=== PATIENT | male | born 1960 | race Caucasian/White ===

== ENCOUNTER → 2017-04-10 16:04 | Outpatient (CLI) | payer OTHER, SELFPAY ==
--- NOTE | 2017-04-10 16:31 | RAD_ITS ---
STUDY: X-RAY - LUMBAR SPINE REASON FOR EXAM: Male, 57 years old. Back pain. TECHNIQUE: 5 view(s) of the lumbar spine were obtained. COMPARISON: None FINDINGS: There is straightening of the normal lumbar lordosis. There is a dextroscoliosis of the lumbar spine. There is a normal alignment of the vertebrae. There is multilevel endplate spondylosis of the lumbar vertebrae. There is multi-level degenerative disc disease with multi-level disc space narrowing. There is no demonstrated fracture. The soft tissue structures are unremarkable. RAD/L/S Spine Min 4 Views IMPRESSION: Degenerative changes and dextroconvex scoliosis. Electronically Signed: Moise Darnell MD at 13:09 EST , Service support ,
== END ==
PROVIDERS: Family Provider Family Medicine; PCP Family Medicine; Visit Provider Family Medicine
DX: M51.36 Other intervertebral disc degeneration, lumbar region (principal); M41.86 Other forms of scoliosis, lumbar region; M47.896 Other spondylosis, lumbar region
CPT/HCPCS: 72110

== ENCOUNTER → 2018-01-05 14:32 | Outpatient (CLI) | payer OTHER, SELFPAY ==
[2016-10-22 19:37] VITALS: BMI 29.1
--- NOTE | 2018-01-05 09:37 | RAD_ITS ---
HISTORY: FALL. PAIN COMPARISON: None FINDINGS: XR Knee Complete 4 Views or More: No fracture or acute disease. Mild narrowing of the medial and lateral joint space compartments. Chondrocalcinosis of the tibiofemoral joint, more so at the medial compartment. The patellofemoral joint appears preserved. No bony erosions or joint effusion. Mild spurring of the anterior superior margin of the patella at the quadriceps insertion. RAD/Knee 4 or More Views IMPRESSION: 1. Left knee mild degenerative arthritis with chondrocalcinosis (pseudogout). 2. No fracture or acute disease. 3. Mild patellar spurring. at 0644 Reported and signed by: Sammy Maher MD Electronically Signed: Sammy Maher, at 6:42 EST Tel , Service support ,
== END ==
PROVIDERS: Family Provider Family Medicine; PCP Family Medicine; Referring Provider Family Medicine; Visit Provider Family Medicine
DX: M17.12 Unilateral primary osteoarthritis, left knee (principal); M11.262 Other chondrocalcinosis, left knee
CPT/HCPCS: 73564

== ENCOUNTER 2018-01-24 13:00 | Outpatient (RCR) | payer OTHER, SELFPAY ==
--- NOTE | 2017-12-15 15:20 | HP.PTEVAL ---
Patient's Visit Information CHI HINTON is a 57 year old M referred to Physical Therapy by Salomón Arroyo DO with a diagnosis of CERVICAL RADICULOPATHY,SPONDYLOLYSIS. Date of Evaluation: 12/15/17 Physical Therapist: Francesco Osorio PT, - Visit Plan Frequency: 2x /Week Duration: 4 Weeks Plan: Intially US ,manual therapy cervical traction monitor left arm symptoms ,doesnt respond to cold ,MHP okay ,started on right rotation and lateral flexion only,. progress to postural ex's as able - Subjective Subjective: This 57 y/o male presents to physical therapy with cervical radiculapthy affects left arm. Patient has had cervical pain for several months. Patient located of pain base of cervical spine and left arm to fingers. Currently,symptoms located at shoulder anterior aspect to upper arm . Symptoms worse with looking ups,turning to left ,poor ROM to left,lifting,sitting. Symptoms better with turning to right. Pain affects sleeping. C/O parathesia/tingling left arm. Intermitant DAWSON .C/O dizziness but has vertigo issues.No trauma ot treatment for cevical spine. Patient had MRI several years ago. No pain management. VOCATION: retired. SOCIAL: - Pain Bilateral Neck Pain Intensity (Out of 10): 7 Pain Intensity Range: 10 Left Shoulder Pain Intensity (Out of 10): 3 Pain Intensity Range: 10 - Objective POSTURE: mild foward posture ,head foward. NEURO: c/o parathesia/tingling left arm,C5-6-7 2/3,mytome weakness C5-6,C6-7. AROM: BUE WFL. MMT: left shoulder 3+/5 anterior /lateral deltoid,bicep ,tricep 3+/5 ,wrist 4-/5. CERVICAL ROM: flexion mod loss pain ,lateral flexion/rotation to left mofd/severe loss pain,right mod loss. PALPATION: tender UT/levator - Special Tests C/S Radiculapathy - Left Upper limb tension test: Negative C/S Radiculapathy - Right Upper limb tension test: Negative C/S Radiculapathy - Left Spurlings: Positive C/S Radiculapathy - Right Spurlings: Positive C/S Radiculapathy - Left Cervical distraction: Negative C/S Radiculapathy - Right Cervical distraction: Negative Sharp Latesha: Negative Vertebral Artery Test: Negative Alar Ligament Test: Negative Cervical Sitting: Protrusion - Mechanical Response: No effect Cervical Sitting: Protrusion - Symptoms During Testing: Increases Cervical Sitting: Protrusion - Symptoms After Testing: Worse Cervical Sitting: Retraction - Mechanical Response: No effect Cervical Sitting: Retraction - Symptoms During Testing: Increases Cervical Sitting: Retraction - Symptoms After Testing: Worse Cervical Sitting: Retraction-Extension - Mechanical Response: No effect Cerv Sitting: Retraction-Extension - Symptoms During Testing: Increases Cerv Sitting: Retraction-Extension - Symptoms After Testing: Worse Cervical Sitting: Sidebend Right - Mechanical Response: No effect Cervical Sitting: Sidebend Right - Symptoms During Testing: Decreases Cervical Sitting: Sidebend Right - Symptoms After Testing: Better Cervical Sitting: Sidebend Left - Mechanical Response: No effect Cervical Sitting: Sidebend Left - Symptoms During Testing: Increases Cervical Sitting: Sidebend Left - Symptoms After Testing: Worse Cervical Sitting: Rotation Right - Mechanical Response: No effect Cervical Sitting: Rotation Right - Symptoms During Testing: Decreases Cervical Sitting: Rotation Right - Symptoms After Testing: No better Cervical Sitting: Rotation Left - Mechanical Response: No effect Cervical Sitting: Rotation Left - Symptoms During Testing: Increases Cervical Sitting: Rotation Left - Symptoms After Testing: Worse Cervical Sitting: Flexion - Mechanical Response: No effect Cervical Sitting: Flexion - Symptoms During Testing: Abolishes Cervical Sitting: Flexion - Symptoms After Testing: Worse - Goals Goal 1:: Patient to be Independant with HEP Goal Time Frame: 4-6 Weeks Goal 2:: Patient to improve posture for ADL'S Goal Time Frame: 4-6 Weeks Goal 3:: Patient to decrease pain by 50% or greater to improve function. Goal Time Frame: 4-6 Weeks Goal 4:: Patient improve cervical ROM for function of recovery Goal Time Frame: 4-6 Weeks Goal 5:: Patient increase strength of left UE 4-/5 to improve mytomes. Goal Time Frame: 4-6 Weeks Goal 6:: Patient to improve neck owsestry score by 5 points or greater to improve function. Goal Time Frame: 4-6 Weeks - Rehabilitation Potential Physical Therapy Diagnosis: This patient has cervical radiculopathy due to possible lateral stenosis with pain worse with movement to left side better opposite side ,and extension ,+ mytome weakness ,there may be some disc involvemt as well. Patient did have MRI showed multiple DDD,SPURS couple years ago. Rehabilitation Potential: Good - Anticipated Interventions Patient/Client Instruction: Educate patient on: Condition, Plan of Care For the Purpose of:: To decrease pain, To increase ROM, To improve muscle performance and motor function, To improve ability to perform ADL's, To increase tolerance to activity/condition/position, To improve ability of physical actions for home/community/work/leisure, To improve health of tissue, To decrease soft tissue restriction, To increase flexibility/ROM, To improve ability to perform tasks related to life management Therapeutic Exercise to Include: Strength training, Postural training, Active ROM Comment: cervical ROM For the Purpose of:: To decrease pain, To increase ROM, To improve nutrient delivery to tissue, To increase oxygenation perfusion, To improve health of tissue, To decrease soft tissue restriction, To increase flexibility/ROM, To improve ability to perform tasks related to life management Manual Therapy Techniques to Include: Mobilization, Other Comment: CERVICAL TRACTION For the Purpose of:: To decrease pain, To increase ROM, To improve muscle performance and motor function, To improve health of tissue, To decrease soft tissue restriction, To increase flexibility/ROM TENS: Yes IF ES: Yes Thermo therapy (hot pack): Yes Ultrasound (thermal/non thermal): Yes Intermittent cervical traction: Yes - 15-20# For the Purpose of:: To decrease pain, To increase ROM, To improve nutrient delivery to tissue, To increase oxygenation perfusion, To improve health of tissue, To decrease soft tissue restriction Thank you for the opportunity to evaluate your patient. For Medicare and Medicare HMO plans, please review the plan of care and approve it. It will need to be FAXED BACK to us at [phone] for Medicare purposes. Please let me know if there are questions or concerns regarding this plan of care. Physician Signature: Date:
--- NOTE | 2018-01-24 13:28 | HP.PTDCSUM ---
HP - PT D/C Summary It has been my pleasure to treat CHI HINTON under orders from Salomón Arroyo DO, for the diagnosis of CERVICAL RADICULOPATHY,SPONDYLOLYSIS for a total of 12 visit(s). Discharge Date: 01/24/18 Please see the following information for a summary of their discharge status. - Subjective Subjective: Doing good no pain . progressing well. Return to prior ADL'S no difficulty - Pain Bilateral Neck Pain Intensity (Out of 10): 0 Left Shoulder Pain Intensity (Out of 10): 0 - Overall Improvement % Improvement: 95 - Objective Objective/Function: POSTURE: WFL. NEURO: intact. MMT: grossly 4/5. CERVICAL ROM: flexion min loss ,lateral flexion/rotation mod loss. -ANR - Goals Goal 1:: Patient to be Independant with HEP Goal Progress: Goal Met Goal 2:: Patient to improve posture for ADL'S Goal Progress: Goal Met Goal 3:: Patient to decrease pain by 50% or greater to improve function. Goal Progress: Goal Met Goal 4:: Patient improve cervical ROM for function of recovery Goal Progress: Goal Met Goal 5:: Patient increase strength of left UE 4-/5 to improve mytomes. Goal Progress: Goal Met Goal 6:: Patient to improve neck owsestry score by 5 points or greater to improve function. Goal Progress: Goal Met - Plan Plan: D/C - D/C Information If there are questions or concerns regarding this patient's physical therapy, please feel free to call me at [phone]. Thank you for the referral of this patient. Sincerely, Francesco Osorio, PT,
== END 2018-01-24 19:00 | disposition home or self-care (01) ==
LOC: PT 13:00
PROVIDERS: Family Provider Family Medicine; PCP Family Medicine; Referring Provider Family Medicine; Visit Provider Family Medicine
DX: M54.12 Radiculopathy, cervical region (principal); M43.02 Spondylolysis, cervical region
CPT/HCPCS: 97012; 97035; 97140; 97162; 97530

== ENCOUNTER 2018-02-12 09:00 | Outpatient (RCR) | payer OTHER, SELFPAY ==
--- NOTE | 2018-01-29 14:59 | HP.PTEVAL_ITS ---
Patient's Visit Information CHI HINTON is a 57 year old M referred to Physical Therapy by INDERJIT Velazquez with a diagnosis of Left knee pain, MCL sprain, lateral compartment arthritis. Date of Evaluation: 01/29/18 Physical Therapist: Tamiko Gunter - Visit Plan Frequency: 3x /Week Duration: 4 Weeks Plan: Focus on LE and core s/s - Subjective Findings: Patient reports falling about a month ago and is insure how it all happened but the knee is really painful. Pain is located along the medial border of the knee, above and below the knee cap- soemtimes the whole top of the knee feels like its burning and is very painful. Has had a DSA and a tumor/cyst removal approx 25 years ago. Has had previous injuries. 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 Has had recent x-rays- nothing broken just lateral compartment arthritis. Currently 04/01. Worst: 11/29 Agg: not wearing the brace, anything bothers it. Best: 04/01 Eases: brace. The brace is new and is doing his job- purchased at [employer]. No radiating pain- the quad has been twitching. Occasionally N/T in the toes but blames it on the back but its new since the fall. Just finished n renay therapy with PT Tod Osorio- the neck is better. PMHx: HTN, skin cancer, Benign brain tumor, bening tumor behind the knee, hernia surgery, right shoulder surgery (14 years ago). Sleep: hard to get comfortable- side sleeper right with a pillow between the knees. 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 - Objective Posture: FH, RS, Increased kyphosis. Gait: antalgic- decreased stance on the left LE- using straight cane. Stairs: non recip with 1 HR and cane. Palpation: tender along medial and lateral joint line and superior patella. HR/TR: able- increased pain. SLS: WS but unable to SLS- increases pain. ROM: 10-130 degrees. Strength: ankle: 5/5, knee: 4+/5, Hip: 4/5 Core: fair minus. Sensation/Reflex: WNL - Goals Goal 1:: Patient will be I with HEP and progression Goal Time Frame: 4-6 Weeks Goal 2:: Patient will asc/desc 8 stairs recip with 1 HR Goal Time Frame: 4-6 Weeks Goal 3:: Patient will demo 0 degrees of extension of the knee Goal Time Frame: 4-6 Weeks Goal 4:: Patient will report 0/10 pain for 1 week in the left knee. Goal Time Frame: 4-6 Weeks - Rehabilitation Potential Physical Therapy Diagnosis: Patient presents with hypomobility- he has decreased ROM, strength and muscular endurance leading to abnormal gait and increased pain with ADL's. Rehabilitation Potential: Fair - Anticipated Interventions Patient/Client Instruction: Educate patient on: Benefits of Fitness Program Therapeutic Exercise to Include: Strength training, Endurance training, Balance training, Agility training, Body mechanics, Postural training, Flexibilty training, Gait and locomotor training, Passive ROM, Active ROM, Dynamic Lumbar Stabilization For the Purpose of:: To improve muscle performance and motor function TENS: Yes Cryotherapy (ice pack, ice massage): Yes Thermo therapy (hot pack): Yes Ultrasound (thermal/non thermal): Yes Thank you for the opportunity to evaluate your patient. For Medicare and Medicare HMO plans, please review the plan of care and approve it. It will need to be FAXED BACK to us at [phone] for Medicare purposes. For Medicare only, by signing this I certify the plan of care. Please let me know if there are questions or concerns regarding this plan of care. Physician Signature:____ Date:
--- NOTE | 2018-06-21 11:53 | HP.PT.NRP ---
HP - Discharge Summary (1) - Patient Information CHI HINTON was seen in my office for initial evaluation on 01/29/18. The following Plan of Care was established for this patient: Initial Frequency: 3x /Week Initial Duration: 4 Weeks - Anticipated Interventions Patient/Client Instruction: Educate patient on: Benefits of Fitness Program Therapeutic Exercise to Include: Strength training, Endurance training, Balance training, Agility training, Body mechanics, Postural training, Flexibilty training, Gait and locomotor training, Passive ROM, Active ROM, Dynamic Lumbar Stabilization For the Purpose of:: To improve muscle performance and motor function TENS: Yes Cryotherapy (ice pack, ice massage): Yes Thermo therapy (hot pack): Yes Ultrasound (thermal/non thermal): Yes This patient was last seen in our office . Pertinent comments regarding their Physical therapy will appear below: Patient has not attended physical therapy is over 30 days- appropriate to be d/c from PT and return to MD as needed for further evaluation. At this point I will be discontinuing this patient from physical therapy. I would be happy to see this patient again in the future if found appropriate by the physician. Thank you! Tamiko Gunter DPT
== END 2018-02-12 19:00 | disposition home or self-care (01) ==
LOC: PT 09:00
PROVIDERS: Family Provider Family Medicine; PCP Family Medicine; Referring Provider Physician Assistant; Visit Provider Physician Assistant
DX: M25.562 Pain in left knee (principal); S83.412D Sprain of medial collateral ligament of left knee, subsequent encounter; M17.12 Unilateral primary osteoarthritis, left knee
CPT/HCPCS: 97014; 97110; 97161; 97164; G0283

== ENCOUNTER → 2018-03-03 07:57 | Outpatient (CLI) | payer OTHER, SELFPAY ==
--- NOTE | 2018-03-03 08:04 | MRI_ITS ---
STUDY: MRI LEFT KNEE REASON FOR EXAM: Male, 57 years old. Medial collateral ligament sprain. Medial pain. Status post fall 2 months ago. TECHNIQUE: Standardized fat and water weighted pulse sequences were obtained in all 3 orthogonal planes. COMPARISON: None. FINDINGS: There is tearing of the body and posterior horn of the medial meniscus. There is low-grade cartilage degeneration in the medial joint compartment. Normal medial femoral condyle and tibial plateau. Normal medial collateral ligamentous complex (MCL). Normal distal semimembranosus, gracilis and semitendinosus tendons. Normal lateral meniscus. Normal hyaline cartilage of the lateral femorotibial compartment. Normal lateral femoral condyle and tibial plateau. Normal proximal tibiofibular articulation. Normal lateral collateral (fibular) ligament. Normal popliteus tendon. Normal biceps femoris tendon. Normal anterior cruciate ligament (ACL). Normal posterior cruciate ligament (PCL). There is intermediate grade cartilage degeneration in the patellofemoral joint. . Normal medial and lateral patellar retinaculum. Normal quadriceps tendon. Normal patellar tendon. Normal Hoffa's fat pad. There is a small joint effusion. The soft tissues are unremarkable. Small popliteal cyst is identified. MRI/Lower Ext Joint Only (Routine) IMPRESSION: Tearing of the medial meniscus. Hyaline cartilage degeneration in the medial and patellofemoral compartments. Small joint effusion. Small popliteal cyst. Electronically Signed: Tristen Rosas, at 12:20 EST Tel , Service support ,
== END ==
PROVIDERS: Family Provider Family Medicine; PCP Family Medicine; Referring Provider Physician Assistant; Visit Provider Physician Assistant
DX: S83.412A Sprain of medial collateral ligament of left knee, initial encounter (principal)
CPT/HCPCS: 73721

== ENCOUNTER 2018-03-13 10:02 | Day surgery (SDC) | payer OTHER, SELFPAY ==
[2018-03-13 10:15] VITALS: BP 139/89; PULSE 57; RESP 16; TEMP 36.8; O2SAT 98; BMI 30.2
[2018-03-13 10:44] LABS: Hematocrit 45.7 % (40-54); Hemoglobin 15.2 g/dl (13.0-16.5); Mean Corp Hgb Conc 33.3 g/gl (32-36); Mean Corpuscular Hgb 29.1 pg (27.0-32.0); Mean Corpuscular Volume 87.4 fL (80-94); Mean Platelet Vol. 9.6 fl (6.2-12.0); Platelet Count 170 K/mm3 (150-450); RBC Distribution Width CV 13.9 % (11.6-14.6); RBC Distribution Width SD 44.4 fl (35.1-43.9); Red Blood Count 5.23 M/mm3 (4.6-6.2); White Blood Count 5.1 K/mm3 (4.4-11.0)
[2018-03-13 10:45] LABS: Scan Indicated on CBC? Y/N NO
[2018-03-13 10:49] LABS: Partial Thromboplast Time 27.7 Seconds (24.1-36.2)
[2018-03-13 10:57] LABS: Anion Gap 6 (5-15); BUN 12 mg/dL (7-18); BUN/Creat Ratio 9.4 RATIO (10-20); Calcium,Total 9.1 mg/dL (8.5-10.1); Chloride 108 mmol/L (98-107); Creatinine, Serum 1.28 mg/dL (0.70-1.30); EST Glomerular Filtration Rate 61 mL/min (>60); Est Glom Filt Rate - Afr Amer 74 mL/min (>60); Estimated Creatinine Clearance 69.36 ml/min; Glucose 121 mg/dL (74-106); Potassium 4.2 mmol/L (3.5-5.1); Sodium Level 142 mmol/L (136-145)
[2018-03-13] MEDS: Cefazolin 2 GM in 0.9% Normal Saline 100 ML IV (12:05)
[2018-03-13] MEDS: Bupivacaine 0.5% PF 10 ML VIAL (12:45)
[2018-03-13] MEDS: MethylPREDNISolone Acetate 80 MG/ML Vial (12:45)
[2018-03-13 13:04] VITALS: BP 112/78; BP 139/89; PULSE 54; RESP 15; TEMP 36.2; O2SAT 94
[2018-03-13 13:15] VITALS: BP 127/89; BP 139/89; PULSE 56; RESP 16; O2SAT 98
[2018-03-13 13:26] LABS: Bedside Glucose 100 mg/dL (70-110)
[2018-03-13 13:30] VITALS: BP 126/88; BP 139/89; PULSE 59; RESP 16; O2SAT 94
--- NOTE | 2018-03-13 13:37 | DCINST_ITS ---
Discharge Diet: No Restrictions Discharge Activity: May Not Shower - Leave dressing on clean dry and intact for 48 hours. Then remove and begin showering daily but do not submerge wounds under water in tub or pool. Encourage full range of motion of the knee immediately use crutches until confident in the knee weightbearing as tolerated Ice area for (Minutes): 15 - 15 on 15 off Weight Bearing Status: Weight bearing as tolerated Keep extremity elevated above heart level: Operative Extremity Call your doctor if you observe: Fever of 101 or Higher, Inability to urinate, Inability to have a bowel movement, Shortness of breath, Chest pain, Calf discomfort, Uncontrolled pain Suture Line Care: Avoid Pulling/Pushing Allergies/Adverse Reactions: Allergies chocolate flavor Allergy (Verified 03/09/18 14:09) Rash hydrochlorothiazide Allergy (Verified 03/09/18 14:09) Rash lisinopril Adverse Reaction (Verified 03/12/18 12:52) Pain in joints Medications to take at Discharge Aspirin [Aspirin, Baby] 81 mg PO DAILY@0800 04/09/15 Atenolol [Tenormin (beta macario)] 25 mg PO DAILY 04/09/15 B Complex with Vitamin C 1 tab PO DAILY 04/09/15 Cetirizine HCl [Zyrtec] 10 mg PO DAILY PRN 04/09/15 Cinnamon 1,000 mg PO DAILY 04/09/15 Coconut Oil/Beeswax/Safflower 1,000 mg PO BID 04/09/15 Coq10 200 mg PO DAILY 04/09/15 Diazepam [Valium] 5 mg PO BID PRN 04/09/15 Fish Oil 1,200 mg PO DAILY 04/09/15 Gabapentin [Neurontin] 300 mg PO TIDCM 04/09/15 Glucosamine/MSM/Chondroitin A [Glucosamine Chondroit MSM Tab] 2 each PO DAILY 04/09/15 Melatonin 3 mg PO QHS 04/09/15 Multivitamin [Daily Multiple Vitamin] 1 each PO DAILY 04/09/15 Spironolactone [Aldactone] 25 mg PO BID 04/09/15 Albuterol Inhaler [Ventolin Hfa (SP)] 1 - 2 puff INHALATION Q4H PRN PRN 03/09/18 Ondansetron HCl [Zofran] 4 mg PO PRN PRN 03/09/18 Oxycodone [Oxyir] 5 - 10 mg PO Q4H PRN PRN 7 Days #30 tablet 03/13/18 The following prescriptions were given: Oxycodone [Oxyir] 5 - 10 mg PO Q4H PRN PRN 7 Days #30 tablet PRN Reason: Mod-Severe Pain (-11/29) Primary Care Physician: Salomón Arroyo DO [Primary Care Provider] - Test Results: Test results from this visit will be discussed in further detail at your follow- up appointment, if applicable. Please Follow Up With: Dr. Martínez When: 2 weeks
[2018-03-13 13:45] VITALS: BP 125/81; BP 139/89; PULSE 56; RESP 16; TEMP 36.2; O2SAT 96
--- NOTE | 2018-03-13 13:52 | OP.PCM_ITS ---
Problem List (1) Mechanical pain of left knee Status: Acute Report of Operation Date of Procedure: 03/13/18 Pre-Operative Diagnosis: Knee medial meniscus tear DJD Post-Operative Diagnosis: Anterior horn medial meniscus tear body lateral meni scus tear chondrocalcinosis grade III chondromalacia medial femoral condyle lateral femoral condyle and patella Surgery/Procedure Performed:: Knee arthroscopic partial anterior horn medial meniscectomy partial body lateral meniscectomy chondroplasty medial femoral condyle lateral femoral condyle and partial synovectomy Description of Surgical Findings:: Tourniquet time: 30 minutes Indication for procedure: [This is a 66-year-old male who has had mechanical knee pain since a fall in December who is failed conservative treatment did have MRI which showed likely medial meniscus tear and DJD he did wish to proceed with an elective arthroscopic surgery to attempt to alleviate his symptoms.] Risks benefits and alternatives were reviewed with the patient including risk of bleeding infection nerve artery tissue damage need for further surgery continued pain postoperative stiffness and expected postoperative course. Procedure: The patient was met in the preoperative holding area the operative extremity was identified by both patient and physician and was marked. Patient was brought back to the operating room on a wheeled cart and transferred to the operating table in the supine position. Anesthesia was started. A well-padded tourniquet was placed on the operative extremity. A lower extremity leg venegas was placed in the contralateral extremity was well-padded. The end of the bed was flexed to 90 degrees. A timeout was called to ensure the proper patient procedure and extremity were being contemplated. 0.5% Marcaine with epinephrine was injected into the planned anteriomedial and anteriolateral portals. An Esmarch was used to exsanguinate the extremity and the tourniquet was inflated to 300 mmHg. An 11 blade scalpel was used to make a stab incision in the anteriorolateral portal. The arthroscope was inserted into the intercondylar notch with ease inflow and outflow tubes were attached and arthroscopic visualization began. The medial compartment was entered. An 18-gauge spinal needle was used to establish the placement of an anterior medial portal followed by an 11 blade scalpel to make a stab incision. A probe was then used to evaluate the medial compartment. [ There was noted to be degenerative tearing of the anterior horn medial meniscus and crystal deposition within the substance of the meniscus and cartilage. The posterior horn and body of the medial meniscus were probed extensively from the undersurface and over surface and there was no significant tearing. There was however loose cartilage flaps of the medial femoral condyle which were debrided with the use of a 3.7 full-radius shaver.] The ACL was inspected and was [found to be intact]. The lateral compartment was entered in the figure 4 position [and there was noted to be more crystal deposition as well as degenerative tearing of the body of the lateral meniscus. With the use of the shaver a partial meniscectomy was performed of the undersurface of the lateral meniscus. There was noted to be some loose cartilage which was debrided as well of the femoral condyle. ] The patellofemoral joint was inspected and [there was noted to be grade 2-3 changes of the lateral patellar facet however there was no loose cartilage flaps]. A partial synovectomy was performed to allow for complete visualization. The medial and lateral gutters were inspected and [were free of loose bodies]. The knee was thoroughly irrigated and drained and an intra-articular injection with [40 mg Depo-Medrol and 10 cc of 0.25% Marcaine plain] was injected through the scope intra-articularly. 3-0 nylon was used to perform arthroscopic knots in the anterior lateral and anterior medial portals. Dressing was applied in the form of Xeroform 4 x 4 ABD web roll and an Raoul wrap. The tourniquet was let down. All counts were correct at there was no intraoperative complications the patient was brought back to the PACU in stable condition. Due to the amount of crystal deposition highly suspect gout or pseudogout and would recommend uric acid testing Type of Anesthesia:: General Estimated Blood Loss (mL): 5
[2018-03-13 14:18] VITALS: BP 126/80; BP 139/89; PULSE 60; RESP 16; TEMP 36.3; O2SAT 97
--- OUTSIDE RECORDS SUMMARY | 2018-05-15 12:28 | XMS RPT_ITS ---
:1960 Author Organization OHIP Support Name Relationship Address Phone D Unavailable Unavailable Unavailable JAMAAL RACHAEL Unavailable [address] + [place] [address] JAMAAL, JAMIL Unavailable [address] + [place] [address] D Unavailable Unavailable Unavailable JAMAAL RACHAEL Unavailable [address] + [place] [address] JAMAAL, JAMIL Unavailable [address] + [place] [address] D Unavailable Unavailable Unavailable JAMAAL RACHAEL Unavailable [address] + [place] [address] JAMAAL, JAMIL Unavailable [address] + [place] [address] D Unavailable Unavailable Unavailable JAMAAL RACHAEL Unavailable [address] + [place] [address] JAMAAL, JAMIL Unavailable [address] + [place] [address] D Unavailable Unavailable Unavailable JAMAAL RACHAEL Unavailable [address] + [place] [address] JAMAAL, JAMIL Unavailable [address] + [place] [address] GIA HINTONDY Unavailable [address] + [place] [address] RODOLFO HINTON Unavailable Unavailable Unavailable D Unavailable Unavailable Unavailable JAMAAL RACHAEL Unavailable [address] + [place] [address] JAMAAL, JAMIL Unavailable [address] + [place] [address] D Unavailable Unavailable Unavailable JAMAAL, RACHAEL Unavailable [address] + [place] [address] JAMAAL, JAMIL Unavailable [address] + [place] [address] D Unavailable Unavailable Unavailable JAMAAL, RACHAEL Unavailable [address] + [place] [address] JAMAAL, JAMIL Unavailable [address] + [place] [address] JAMAAL, REINIER Unavailable [address] + [place] [address] JAMAAL, RODOLFO Unavailable Unavailable Unavailable JAMAAL, REINIER Unavailable [address] + [place] [address] JAMAAL, RODOLFO Unavailable Unavailable Unavailable JAMAAL, REINIER Unavailable [address] + [place] [address] JAMAAL, RODOLFO Unavailable Unavailable Unavailable JAMAAL, REINIER Unavailable [address] + [place] [address] JAMAAL, RODOLFO Unavailable Unavailable Unavailable JAMAAL, REINIER Unavailable [address] + [place] [address] JAMAAL RODOLFO Unavailable Unavailable Unavailable JAMAAL, REINIER Unavailable [address] + [place] [address] JAMAAL RODOLFO Unavailable Unavailable Unavailable D Unavailable Unavailable Unavailable JAMAAL, RACHAEL Unavailable [address] + [place] [address] JAMAAL, JAMIL Unavailable [address] + [place] [address] Care Team Providers Name Role Phone EULALIA CULLEN Attending Unavailable EULALIA CULLEN Referring Unavailable HANY, CHERI-CHI Primary Care Unavailable JUNIE FORBES Attending Unavailable JUNIE FORBES Referring Unavailable HANY, CHERI-CHI Primary Care Unavailable DAVID CAGLE Attending Unavailable EULALIA CULLEN Referring Unavailable HANY, CHERI-CHI Primary Care Unavailable BENIGNO COPE Attending Unavailable EULALIA CULLEN Referring Unavailable HANY, CHERI-CHI Primary Care Unavailable EULALIA CULLEN Attending Unavailable EULALIA CULLEN Referring Unavailable HANY, CHERI-CHI Primary Care Unavailable JUNIE FORBES Attending Unavailable JUNIE FORBES Referring Unavailable HANY, CHERI-CHI Primary Care Unavailable EULALIA CULLEN Attending Unavailable SELF, SELF Referring Unavailable HANY, CHERI-CHI Primary Care Unavailable Borruso, Kendrick Attending Unavailable Borruso, Kendrick Referring Unavailable Cruz, Salomón Primary Care Unavailable Wayt, Sammy Attending Unavailable Cruz, Salomón Primary Care Unavailable Wayt, Sammy Referring Unavailable Wayt, Sammy Attending Unavailable Cruz, Salomón Referring Unavailable Cruz, Salomón Attending Unavailable Cruz, Salomón Referring Unavailable Cruz, Salomón Primary Care Unavailable Cruz, Salomón Attending Unavailable Cruz, Salomón Referring Unavailable Cruz, Salomón Primary Care Unavailable Borruso, Kendrick Attending Unavailable Borruso, Kendrick Referring Unavailable Cruz, Salomón Primary Care Unavailable Borruso, Kendrick Consulting Unavailable Wayt, Sammy Attending Unavailable Cruz, Salomón Referring Unavailable Wayt, Sammy Attending Unavailable Wayt, Sammy Referring Unavailable Cruz, Salomón Primary Care Unavailable Cruz, Salomón Attending Unavailable Cruz, Salomón Primary Care Unavailable PROBLEMS PROBLEMS DATE TYPE CONDITION / CODE ATTENDING STATUS SOURCE 03/13/2018 Unknown G89.18 - Other acute Borruso, Active [place] postprocedural pain [facility] / G89.18(ICD-10) Hospital Repository 01/25/2018 Unknown M54.12 - Salomón Arroyo Active [place] Radiculopathy, [facility] cervical region / Hospital M54.12(ICD-10) Repository 01/02/2018 Admitting Meniere Disease / EULALIA CULLEN Active [place] [facility] diagnosis [id number] [facility] Repository 08/31/2017 Admitting Mixed conductive and SCHNITZSPAHN, 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 with restricted Repository hearing on the contralateral side / H90.A31(ICD-10) 04/10/2017 Unknown M54.5 - Low back Salomón Arroyo Active [place] pain / M54.5(ICD-10) [facility] Hospital Repository 04/10/2017 Unknown M51.36 - Other CruzSalomón patel Active [place] intervertebral disc [facility] degeneration, lumbar Hospital region / Repository M51.36(ICD-10) PROCEDURES PROCEDURES No Procedure Records FoundRESULTS RESULTS OPERATIVE REPORT Observed: 03/13/2018 Status: F Source: [place] 1:56 PM [facility] REPOSITORY [facility] Medical Records Department [address] [place] [address] Operative Report 03/13/18 1338 MR#: [id number] Acct: [id number] Name: RODOLFO HINTON Rep #: [id number] : 1960 58 From: Kendrick Martínez DO PCP: Salomón Arroyo DO Status: REG SDC Y Location: [place] [address] Problem List (1) Mechanical pain of left knee Status: Acute Report of Operation Date of Procedure: 03/13/18 Pre-Operative Diagnosis: Knee medial meniscus tear DJD Post-Operative Diagnosis: Anterior horn medial meniscus tear body lateral meniscus tear chondrocalcinosis grade III chondromalacia medial femoral condyle lateral femoral condyle and patella Surgery/Procedure Performed:: Knee arthroscopic partial anterior horn medial meniscectomy partial body lateral meniscectomy chondroplasty medial femoral condyle lateral femoral condyle and partial synovectomy Description of Surgical Findings:: Tourniquet time: 30 minutes Indication for procedure: [This is a 66-year-old male who has had mechanical knee pain since a fall in December who is failed conservative treatment did have MRI which showed likely medial meniscus tear and DJD he did wish to proceed with an elective arthroscopic surgery to attempt to alleviate his symptoms.] Risks benefits and alternatives were reviewed with the patient including risk of bleeding infection nerve artery tissue damage need for further surgery continued pain postoperative stiffness and expected postoperative course. Procedure: The patient was met in the preoperative holding area the operative extremity was identified by both patient and physician and was marked. Patient was brought back to the operating room on a wheeled cart and transferred to the operating table in the supine position. Anesthesia was started. A well-padded tourniquet was placed on the operative extremity. A lower extremity leg venegas was placed in the contralateral extremity was well-padded. The end of the bed was flexed to 90 degrees. A timeout was called to ensure the proper patient procedure and extremity were being contemplated. 0.5% Marcaine with epinephrine was injected into the planned anteriomedial and anteriolateral portals. An Esmarch was used to exsanguinate the extremity and the tourniquet was inflated to 300 mmHg. An 11 blade scalpel was used to make a stab incision in the anteriorolateral portal. The arthroscope was inserted into the intercondylar notch with ease inflow and outflow tubes were attached and arthroscopic visualization began. The medial compartment was entered. An 18-gauge spinal needle was used to establish the placement of an anterior medial portal followed by an 11 blade scalpel to make a stab incision. A probe was then used to evaluate the medial compartment. [ There was noted to be degenerative tearing of the anterior horn medial meniscus and crystal deposition within the substance of the meniscus and cartilage. The posterior horn and body of the medial meniscus were probed extensively from the undersurface and over surface and there was no significant tearing. There was however loose cartilage flaps of the medial femoral condyle which were debrided with the use of a 3.7 full-radius shaver.] The ACL was inspected and was [found to be intact]. The lateral compartment was entered in the figure 4 position [and there was noted to be more crystal deposition as well as degenerative tearing of the body of the lateral meniscus. With the use of the shaver a partial meniscectomy was performed of the undersurface of the lateral meniscus. There was noted to be some loose cartilage which was debrided as well of the femoral condyle. ] The patellofemoral joint was inspected and [there was noted to be grade 2-3 changes of the lateral patellar facet however there was no loose cartilage flaps]. A partial synovectomy was performed to allow for complete visualization. The medial and lateral gutters were inspected and [were free of loose bodies]. The knee was thoroughly irrigated and drained and an intra-articular injection with [40 mg Depo-Medrol and 10 cc of 0.25% Marcaine plain] was injected through the scope intra-articularly. 3-0 nylon was used to perform arthroscopic knots in the anterior lateral and anterior medial portals. Dressing was applied in the form of Xeroform 4 x 4 ABD web roll and an Raoul wrap. The tourniquet was let down. All counts were correct at there was no intraoperative complications the patient was brought back to the PACU in stable condition. Due to the amount of crystal deposition highly suspect gout or pseudogout and would recommend uric acid testing Type of Anesthesia:: General Estimated Blood Loss (mL): 5 03/13/18 1356 <Electronically signed by Kendrick Martínez DO> Date Kendrick Martínez DO CC: Kendrick Martínez DO; Salomón Arroyo DO Signed DISCHARGE INSTRUCTION Observed: 03/13/2018 Status: F Source: [place] 1:38 PM [facility] REPOSITORY [facility] Medical Records Department [address] [place] [address] Instructions for Home/Discharge Instructions 03/13/18 1333 MR#: [id number] Acct: [id number] Name: RODOLFO HINTON Rep #: [id number] : 1960 58 From: Kendrick Martínez DO PCP: Salomón Arroyo DO Status: REG SDC Discharge Diet: No Restrictions Discharge Activity: May Not Shower - Leave dressing on clean dry and intact for 48 hours. Then remove and begin showering daily but do not submerge wounds under water in tub or pool. Encourage full range of motion of the knee immediately use crutches until confident in the knee weightbearing as tolerated Ice area for (Minutes): 15 - 15 on 15 off Weight Bearing Status: Weight bearing as tolerated Keep extremity elevated above heart level: Operative Extremity Call your doctor if you observe: Fever of 101 or Higher, Inability to urinate, Inability to have a bowel movement, Shortness of breath, Chest pain, Calf discomfort, Uncontrolled pain Suture Line Care: Avoid Pulling/Pushing Allergies/Adverse Reactions: Allergies chocolate flavor Allergy (Verified 03/09/18 14:09) Rash hydrochlorothiazide Allergy (Verified 03/09/18 14:09) Rash lisinopril Adverse Reaction (Verified 03/12/18 12:52) Pain in joints Medications to take at Discharge Aspirin [Aspirin, Baby] 81 mg PO DAILY@0800 04/09/15 Atenolol [Tenormin (beta macario)] 25 mg PO DAILY 04/09/15 B Complex with Vitamin C 1 tab PO DAILY 04/09/15 Cetirizine HCl [Zyrtec] 10 mg PO DAILY PRN 04/09/15 Cinnamon 1,000 mg PO DAILY 04/09/15 Coconut Oil/Beeswax/Safflower 1,000 mg PO BID 04/09/15 Coq10 200 mg PO DAILY 04/09/15 Diazepam [Valium] 5 mg PO BID PRN 04/09/15 Fish Oil 1,200 mg PO DAILY 04/09/15 Gabapentin [Neurontin] 300 mg PO TIDCM 04/09/15 Glucosamine/MSM/Chondroitin A [Glucosamine Chondroit MSM Tab] 2 each PO DAILY 04/09/15 Melatonin 3 mg PO QHS 04/09/15 Multivitamin [Daily Multiple Vitamin] 1 each PO DAILY 04/09/15 Spironolactone [Aldactone] 25 mg PO BID 04/09/15 Albuterol Inhaler [Ventolin Hfa (SP)] 1 - 2 puff INHALATION Q4H PRN PRN 03/09/18 Ondansetron HCl [Zofran] 4 mg PO PRN PRN 03/09/18 Oxycodone [Oxyir] 5 - 10 mg PO Q4H PRN PRN 7 Days #30 tablet 03/13/18 The following prescriptions were given: Oxycodone [Oxyir] 5 - 10 mg PO Q4H PRN PRN 7 Days #30 tablet PRN Reason: Mod-Severe Pain (4-10) Primary Care Physician: Salomón Arroyo DO [Primary Care Provider] - Test Results: Test results from this visit will be discussed in further detail at your follow-up appointment, if applicable. Please Follow Up With: Dr. Martínez When: 2 weeks 03/13/18 1338 <Electronically signed by Kendrick Martínez DO> Date Kendrick Martínez DO CC: Salomón Arroyo DO Signed BEDSIDE GLUCOSE Collected: 03/13/2018 Status: F Source: [place] 1:20 PM [facility] REPOSITORY TYPE CODE TESTS RESULT OUT OF RANGE REFERENCE UNITS LAB L501.080 70-110 mg/dL Normal BEDSIDE GLU 100 Result Comment: MANAGEMENT OF PATIENT CARE PER NURSING PROTOCOL Performed By: #### L501.080 #### [place] [facility] [place], [place] [id number] CBC-COMPLETE BLOOD CNT Collected: 03/13/2018 Status: F Source: [place] NO DIFF 10:30 AM [facility] REPOSITORY TYPE CODE TESTS RESULT OUT OF RANGE REFERENCE UNITS LAB L100.1000 4.4-11.0 K/mm3 Normal WBC 5.1 LAB L100.1200 4.6-6.2 M/mm3 Normal RBC 5.23 LAB L100.1300 13.0-16.5 g/dl Normal HGB 15.2 LAB L100.1400 40-54 % Normal HCT 45.7 LAB L100.1500 80-94 fL Normal MCV 87.4 LAB L100.1600 27.0-32.0 pg Normal MCH 29.1 LAB L100.1700 32-36 g/gl Normal MCHC 33.3 LAB L100.1810 11.6-14.6 % Normal RDW CV 13.9 LAB L100.1820 35.1-43.9 fl High RDW SD 44.4 LAB L100.1900 150-450 K/mm3 Normal PLT 170 LAB L100.2000 6.2-12.0 fl Normal MPV 9.6 Performed By: #### L100.0500, L500.2500 #### [facility] [address] [place], [place], [address] BASIC METABOLIC Collected: 03/13/2018 Status: F Source: [place] PROFILE (BMP) 10:30 AM [facility] REPOSITORY TYPE CODE TESTS RESULT OUT OF RANGE REFERENCE UNITS LAB L501.0100 74-106 mg/dL High GLU 121 Result Comment: Fasting Glucose result from 100 to 125 mg/dL suggests IMPAIRED HOMEOSTASIS per A.D.A. criteria. Please note revised GLUCOSE reference range effective 2017. LAB L501.1000 7-18 mg/dL Normal BUN 12 LAB L501.1100 0.70-1.30 mg/dL Normal CREAT,SERUM 1.28 Result Comment: The validity of the calculated GFR AND GFRAA in patients over 70 years has not been determined. Clinical correlation is essential. LAB L501.1110 >60 mL/min Normal EST GFR 61 Result Comment: Non- GFR Calc LAB L501.1115 >60 mL/min Normal EST GFR - AA 74 Result Comment: GFR Calc LAB L501.1255 ml/min Normal Estimated CRCL 69.36 LAB L501.1300 10-20 RATIO Low BUN/CRE 9.4 LAB L501.2200 8.5-10 mg/dL Normal .1 CA 9.1 LAB L501.5300 136-14 mmol/L Normal 5 NA 142 LAB L501.5600 3.5-5. mmol/L Normal 1 K 4.2 LAB L501.5900 98-107 mmol/L High CL 108 LAB L501.6100 21.0-3 mmol/L Normal 2.0 CO2 28.0 LAB L501.6200 5-15 Normal GAP 6 Performed By: #### L100.0500, L500.2500 #### [facility] [address] [place], [address] PARTIAL THROMBOPLAST Collected: 03/13/2018 Status: F Source: [place] TIME 10:30 AM [facility] REPOSITORY TYPE CODE TESTS RESULT OUT OF RANGE REFERENCE UNITS LAB L300.4310 24.1-36.2 Seconds Normal PTT 27.7 Performed By: #### L300.4310 #### [facility] [address] [place], [address] ORTHOPEDIC VISIT Observed: 03/09/2018 Status: F Source: [place] REPORT 8:33 AM [facility] REPOSITORY [facility] [address] [place] [address] OFFICE VISIT Date of Service: 03/08/18 MR#: [id number] Acct: [id number] Name: JAMAALRODOLFO A Rep #: [id number] : 1960 Provider: INDERJIT Coppola Age/Sex: 57/M [place] [facility] [place] [place]: Signed Intake Intake Visit Reasons: LEFT KNEE Is patient in pain?: Yes Pain scale (1-10): 7 Allergies chocolate flavor Allergy (Verified 01/25/18 14:12) Rash hydrochlorothiazide Allergy (Verified 01/25/18 14:12) Rash lisinopril Allergy (Verified 01/25/18 14:12) Pain in joints Medications Aspirin [Aspirin, Baby] 81 mg PO DAILY@0800 04/09/15 [History Confirmed 10/22/16] Atenolol [Tenormin (beta macario)] 25 mg PO DAILY 04/09/15 [History Confirmed 10/22/16] B Complex with Vitamin C 1 tab PO DAILY 04/09/15 [History Confirmed 10/22/16] Cetirizine HCl [Zyrtec] 10 mg PO DAILY PRN 04/09/15 [History Confirmed 10/22/16] Cinnamon 1,000 mg DAILY 04/09/15 [History Confirmed 10/22/16] Coconut Oil/Beeswax/Safflower 1,000 mg BID 04/09/15 [History Confirmed 10/22/16] Coq10 200 mg DAILY 04/09/15 [History Confirmed 10/22/16] Diazepam [Valium] 5 mg PO BID PRN 04/09/15 [History Confirmed 10/22/16] Fish Oil 1,200 mg DAILY 04/09/15 [History Confirmed 10/22/16] Gabapentin [Neurontin] 300 mg PO TIDCM 04/09/15 [History Confirmed 10/22/16] Glucosamine/MSM/Chondroitin A [Glucosamine Chondroit MSM Tab] 2 ea PO DAILY 04/09/15 [History Confirmed 10/22/16] Melatonin 3 mg PO DAILY 04/09/15 [History Confirmed 10/22/16] Multivitamin [Daily Multiple Vitamin] 1 ea PO DAILY 04/09/15 [History Confirmed 10/22/16] Promethazine HCl 25 mg PO Q6H PRN PRN 04/09/15 [History Confirmed 10/22/16] Spironolactone [Aldactone] 25 mg PO BID 04/09/15 [History Confirmed 10/22/16] PFSH Social History Smoking Status: Never smoker HPI LEFT KNEE: Details: RODOLFO HINTON is a 57 year old M here today for left knee pain, he went to 6 sessions of PT and has better rom but his pain has remained the same. He is wearing his knee brace when walking due to the instability and catching sensation he feels when he walks unprotected. Denies numbness, tingling or other associated symptoms. His pain is all medial aspect of the knee. His recent MRI is here for review. Ortho Exam Left Knee Contralateral Normal: Yes Swelling: No Homans Sign: No Knee ROM: Yes ROM-Extension -20 to 0, Yes ROM-Flexion 0-140 Examination: Yes med jt line tenderness, No Lat jt line tenderness, Yes Jonathan's Test, No TTP inf pole patella, Yes Pain with flexion, No Crepitus Stability: NML: Valgus 30, NML: Varus 30 Patella Grind: No KNEE: Patient has no abnormality on inspection of the knee. He has no localized or generalized swelling. He has no ecchymosis, bruising, or any other skin changes. Patient does have localized medial joint line tenderness with a positive modified Apley's and Jonathan's. He does have pain with flexion. Assessment AND Plan 1. Tear of medial meniscus of left knee, current, unspecified tear type, subsequent encounter S83.242D Plan Today in the office we did discuss patient's MRI findings which did show a medial meniscus tear which does correlate with patient's signs and symptoms today. Patient has been doing conservative care with ice and anti-inflammatories and has gone through physical therapy which have not showed any improvement at this time. He continues to have medial joint line tenderness he does have occasional locking, and instability of the knee. As a result of failed conservative treatment and increased mechanical symptoms patient would like to proceed with surgical intervention at this time. I did explain to patient that there is also arthritic changes noted within the knee and therefore some pain could be still do from this arthritis. Typically the arthritis is not the cause of his locking and instability which started after this fall. Patient is aware of this and states that even if he got back to where he was prior to the fall he would be pleased. We did discuss the entire surgical procedure including meniscus repair versus meniscectomy. We discussed preop and preanesthesia testing with patient. We also did discuss recovery times based on what was actually performed during the procedure. Patient will likely be with an Raoul wrap and be able to bear weight as long as this is a meniscectomy. At this time all of patient's and patient's 's questions were answered to their satisfaction. We will seek approval from his insurance company patient will await date and time of surgery and we will notify him when these are available. Patient was given surgical scrub to be used the night before in the morning of the procedure. This note was generated with [employer] software. It may contain incorrect words, spelling, and punctuation that were not noted in checking the note before signing. Coding Level of Care Code Off vis,est,level 3 Diagnoses Tear of medial meniscus of left knee, current, unspecified tear type, subsequent encounter S83.242D Tear current or old: current Encounter type: subsequent encounter Meniscus tear of knee type: unspecified type Laterality: left 03/09/18 0833 <Electronically signed by Sammy JANSEN> Date Sammy JANSEN Cosigner Signature: Date (if applicable) CC: LOWER EXT JOINT ONLY Observed: 03/03/2018 Status: F Source: [place] (ROUTINE) 8:04 AM [facility] REPOSITORY [facility] Imaging Services [address] [place] [address] Lower Ext Joint Only (Routine) MR#: [id number] Acct: [id number] Name: RODOLFO HINTON Rep #: [id number] : 1960 57 From: Tristen Rosas MD PCP: Salomón Arroyo DO Status: REG CLI Study: Lower Ext Joint Only (Routine) Date of Exam: 03/03/18 Exam# [id number] Ordering Dr: Sammy Coppola STUDY: MRI LEFT KNEE REASON FOR EXAM: Male, 57 years old. Medial collateral ligament sprain. Medial pain. Status post fall 2 months ago. TECHNIQUE: Standardized fat and water weighted pulse sequences were obtained in all 3 orthogonal planes. COMPARISON: None. FINDINGS: There is tearing of the body and posterior horn of the medial meniscus. There is low-grade cartilage degeneration in the medial joint compartment. Normal medial femoral condyle and tibial plateau. Normal medial collateral ligamentous complex (MCL). Normal distal semimembranosus, gracilis and semitendinosus tendons. Normal lateral meniscus. Normal hyaline cartilage of the lateral femorotibial compartment. Normal lateral femoral condyle and tibial plateau. Normal proximal tibiofibular articulation. Normal lateral collateral (fibular) ligament. Normal popliteus tendon. Normal biceps femoris tendon. Normal anterior cruciate ligament (ACL). Normal posterior cruciate ligament (PCL). There is intermediate grade cartilage degeneration in the patellofemoral joint. . Normal medial and lateral patellar retinaculum. Normal quadriceps tendon. Normal patellar tendon. Normal Hoffa's fat pad. There is a small joint effusion. The soft tissues are unremarkable. Small popliteal cyst is identified. MRI/Lower Ext Joint Only (Routine) IMPRESSION: Tearing of the medial meniscus. Hyaline cartilage degeneration in the medial and patellofemoral compartments. Small joint effusion. Small popliteal cyst. Electronically Signed: Tristen Alison, at 12:20 EST Tel , Service support , CC: INDERJIT Coppola; Salomón Arroyo DO Police Captain Senior: Signed ORTHOPEDIC VISIT Observed: 02/07/2018 Status: F Source: [place] REPORT 10:50 AM [facility] REPOSITORY [facility] [address] [place] [address] OFFICE VISIT Date of Service: 01/25/18 MR#: [id number] Acct: [id number] Name: RODOLFO HINTON Rep #: [id number] : 1960 Provider: INDERJIT Coppola Age/Sex: 57/M [place] [facility] [place] [place]: Signed Intake Intake Visit Reasons: LEFT KNEE Is patient in pain?: Yes Pain scale (1-10): 6 Allergies chocolate flavor Allergy (Verified 01/25/18 14:12) Rash hydrochlorothiazide Allergy (Verified 01/25/18 14:12) Rash lisinopril Allergy (Verified 01/25/18 14:12) Pain in joints Medications Aspirin [Aspirin, Baby] 81 mg PO DAILY@0800 04/09/15 [History Confirmed 10/22/16] Atenolol [Tenormin (beta macario)] 25 mg PO DAILY 04/09/15 [History Confirmed 10/22/16] B Complex with Vitamin C 1 tab PO DAILY 04/09/15 [History Confirmed 10/22/16] Cetirizine HCl [Zyrtec] 10 mg PO DAILY PRN 04/09/15 [History Confirmed 10/22/16] Cinnamon 1,000 mg DAILY 04/09/15 [History Confirmed 10/22/16] Coconut Oil/Beeswax/Safflower 1,000 mg BID 04/09/15 [History Confirmed 10/22/16] Coq10 200 mg DAILY 04/09/15 [History Confirmed 10/22/16] Diazepam [Valium] 5 mg PO BID PRN 04/09/15 [History Confirmed 10/22/16] Fish Oil 1,200 mg DAILY 04/09/15 [History Confirmed 10/22/16] Gabapentin [Neurontin] 300 mg PO TIDCM 04/09/15 [History Confirmed 10/22/16] Glucosamine/MSM/Chondroitin A [Glucosamine Chondroit MSM Tab] 2 ea PO DAILY 04/09/15 [History Confirmed 10/22/16] Melatonin 3 mg PO DAILY 04/09/15 [History Confirmed 10/22/16] Multivitamin [Daily Multiple Vitamin] 1 ea PO DAILY 04/09/15 [History Confirmed 10/22/16] Promethazine HCl 25 mg PO Q6H PRN PRN 04/09/15 [History Confirmed 10/22/16] Spironolactone [Aldactone] 25 mg PO BID 04/09/15 [History Confirmed 10/22/16] PFSH Social History Smoking Status: Never smoker HPI LEFT KNEE: Details: RODOLFO HINTON is a 57 year old M here today for left knee pain. Patient states that he was taking his trash out about a month ago and he fell. Patient notes that he has pain over his lateral knee and medial knee and anterior knee. He notes htat he feels like his knee is on fire. Patient denies any bruising or swelling following his fall. He has popping and clicking. Patient feels like he has catching. He states he has increased pain with ambulation. Patient uses a cane due to his dizziness. Patient went to Urgent care where he was put on prednisone. He had xrays which is here for review. He denies any injections or physical therapy. ROS Const Reports system reviewed and no additional complaints, except as docu Eyes Reports system reviewed and no additional complaints, except as docu ENT Reports system reviewed and no additional complaints, except as docu Card Reports system reviewed and no additional complaints, except as docu Resp Reports system reviewed and no additional complaints, except as docu GI Reports system reviewed and no additional complaints, except as docu Reports system reviewed and no additional complaints, except as docu Musc Reports joint pain, Reports stiffness Skin/Breast Reports system reviewed and no additional complaints, except as docu Neuro Yes system reviewed and no additional complaints, except as docu Psych Reports system reviewed and no additional complaints, except as docu Endo Reports system reviewed and no additional complaints, except as docu Ortho Exam Left Knee Contralateral Normal: Yes Swelling: No Homans Sign: No Knee ROM: Yes ROM-Extension -20 to 0, Yes ROM-Flexion 0-140 Examination: Yes med jt line tenderness, No Pain with flexion, No Jonathan's Test, Yes Lat jt line tenderness Quad Atrophy: No Stability: NML: Anterior Drawer, NML: Posterior Drawer, NML: Valgus 30, NML: Varus 30 Popliteal Adenopathy: No Patella Grind: No KNEE: Patient has no abnormalities noted on inspection of the knee. He has no localized or generalized swelling of the knee. He has normal range of motion and normal strength comparable to the right knee. There is no evident laxity or instability on examination today. Assessment AND Plan Problems 1. Acute pain of left knee M25.562 Plan At this time we reviewed patient's x-rays from the emergency room which did not show any acute abnormalities. It did show some pseudogout as well as some patellofemoral arthritis. Since his fall patient has seen steady and gradual improvement in his pains. He has normal function, normal range of motion and strength. He has not had any limitations with activities right now. At this time we discussed options which include doing nothing, continued conservative care with ice and anti-inflammatories, injection, and physical therapy, and/or further imaging. At this time I do not feel MRI is warranted with continued improvement in function. We discussed an injection which can help pseudogout quite a bit. At this time patient would like to forego the injection and will start his physical therapy. If at anytime he has increased pains or would like to have an injection he can return at that time. Otherwise we will see him following physical therapy. This note was generated with [employer] dictation software. It may contain incorrect words, spelling, and punctuation that were not noted in checking the note before signing. Coding Level of Care Code Off vis,new,level 3 Diagnoses Acute pain of left knee M25.562 Chronicity: acute 02/07/18 1050 <Electronically signed by Sammy JANSEN> Date Sammy JANSEN Cosigner Signature: Date (if applicable) CC: INITAL EVALUATION (1) Observed: 01/29/2018 Status: F Source: [place] - PT 2:59 PM [facility] REPOSITORY [facility] [place] [address] Fax REHABILITATION SERVICES INITIAL EVALUATION MR#: [id number] Acct: [id number] Name: RODOLFO HINTON Rep #: [id number] : 1960 57 From: Tamiko Gunter DPT Referring Dr.: INDERJIT Coppola Status: REG RCR Insurance: [facility] SELF PAY INSURANCE Patient's Visit Information RODOLFO HINTON is a 57 year old M referred to Physical Therapy by INDERJIT Velazquez with a diagnosis of Left knee pain, MCL sprain, lateral compartment arthritis. Date of Evaluation: 01/29/18 Physical Therapist: Tamiko Gunter - Visit Plan Frequency: 3x /Week Duration: 4 Weeks Plan: Focus on LE and core s/s - Subjective Findings: Patient reports falling about a month ago and is insure how it all happened but the knee is really painful. Pain is located along the medial border of the knee, above and below the knee cap- soemtimes the whole top of the knee feels like its burning and is very painful. Has had a DSA and a tumor/cyst removal approx 25 years ago. Has had previous injuries. 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 Has had recent x-rays- nothing broken just lateral compartment arthritis. Currently 04/01. Worst: 11/29 Agg: not wearing the brace, anything bothers it. Best: 04/01 Eases: brace. The brace is new and is doing his job- purchased at [employer]. No radiating pain- the quad has been twitching. Occasionally N/T in the toes but blames it on the back but its new since the fall. Just finished neck therapy with PT Tod Osorio- the neck is better. PMHx: HTN, skin cancer, Benign brain tumor, bening tumor behind the knee, hernia surgery, right shoulder surgery (14 years ago). Sleep: hard to get comfortable- side sleeper right with a pillow between the knees. 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 - Objective Posture: FH, RS, Increased kyphosis. Gait: antalgic- decreased stance on the left LE- using straight cane. Stairs: non recip with 1 HR and cane. Palpation: tender along medial and lateral joint line and superior patella. HR/TR: able-increased pain. SLS: WS but unable to SLS- increases pain. ROM: 10-130 degrees. Strength: ankle: 5/5, knee: 4+/5, Hip: 4/5 Core: fair minus. Sensation/Reflex: WNL - Goals Goal 1:: Patient will be I with HEP and progression Goal Time Frame: 4-6 Weeks Goal 2:: Patient will asc/desc 8 stairs recip with 1 HR Goal Time Frame: 4-6 Weeks Goal 3:: Patient will demo 0 degrees of extension of the knee Goal Time Frame: 4-6 Weeks Goal 4:: Patient will report 0/10 pain for 1 week in the left knee. Goal Time Frame: 4-6 Weeks - Rehabilitation Potential Physical Therapy Diagnosis: Patient presents with hypomobility- he has decreased ROM, strength and muscular endurance leading to abnormal gait and increased pain with ADL's. Rehabilitation Potential: Fair - Anticipated Interventions Patient/Client Instruction: Educate patient on: Benefits of Fitness Program Therapeutic Exercise to Include: Strength training, Endurance training, Balance training, Agility training, Body mechanics, Postural training, Flexibilty training, Gait and locomotor training, Passive ROM, Active ROM, Dynamic Lumbar Stabilization For the Purpose of:: To improve muscle performance and motor function TENS: Yes Cryotherapy (ice pack, ice massage): Yes Thermo therapy (hot pack): Yes Ultrasound (thermal/non thermal): Yes Thank you for the opportunity to evaluate your patient. For Medicare and Medicare HMO plans, please review the plan of care and approve it. It will need to be FAXED BACK to us at [phone] for Medicare purposes. For Medicare only, by signing this I certify the plan of care. Please let me know if there are questions or concerns regarding this plan of care. Physician Signature: Date: <Electronically signed by Tamiko Gunter DPT> 01/29/18 1453 CC: INDERJIT Coppola; Salomón Arroyo DO ELR Signed PT D/C SUMMARY (1) Observed: 01/25/2018 Status: F Source: [place] 3:00 PM [facility] REPOSITORY [facility] [place] [address] Fax REHABILITATION SERVICES DISCHARGE SUMMARY MR#: [id number] Acct: [id number] Name: RODOLFO HINTON Rep #: [id number] : 1960 57 From: Francesco Osorio PT, Cert. MDT, OCS Referring Dr.: Salomón Arroyo DO Status: REG RCR Insurance: [facility] SELF PAY INSURANCE HP - PT D/C Summary It has been my pleasure to treat RODOLFO HINTON under orders from Salomón Arroyo DO, for the diagnosis of CERVICAL RADICULOPATHY,SPONDYLOLYSIS for a total of 12 visit(s). Discharge Date: 01/24/18 Please see the following information for a summary of their discharge status. - Subjective Subjective: Doing good no pain . progressing well. Return to prior ADL'S no difficulty - Pain Bilateral Neck Pain Intensity (Out of 10): 0 Left Shoulder Pain Intensity (Out of 10): 0 - Overall Improvement % Improvement: 95 - Objective Objective/Function: POSTURE: WFL. NEURO: intact. MMT: grossly 4/5. CERVICAL ROM: flexion min loss ,lateral flexion/rotation mod loss. -ANR - Goals Goal 1:: Patient to be Independant with HEP Goal Progress: Goal Met Goal 2:: Patient to improve posture for ADL'S Goal Progress: Goal Met Goal 3:: Patient to decrease pain by 50% or greater to improve function. Goal Progress: Goal Met Goal 4:: Patient improve cervical ROM for function of recovery Goal Progress: Goal Met Goal 5:: Patient increase strength of left UE 4-/5 to improve mytomes. Goal Progress: Goal Met Goal 6:: Patient to improve neck owsestry score by 5 points or greater to improve function. Goal Progress: Goal Met - Plan Plan: D/C - D/C Information If there are questions or concerns regarding this patient's physical therapy, please feel free to call me at [phone]. Thank you for the referral of this patient. Sincerely, Francesco Osorio PT, <Electronically signed by Francesco Osorio PT, Cert. T, OCS> 01/25/18 1500 CC: Slaomón Arroyo DO MOLLY Signed KNEE 4 OR MORE Observed: 01/05/2018 Status: F Source: [place] VIEWS 2:40 PM [facility] REPOSITORY [facility] Imaging Services [address] [place] [address] Knee 4 or More Views MR#: [id number] Acct: [id number] Name: RODOLFO HINTON Rep #: [id number] : 1960 M 57 From: Sammy Maher MD PCP: Salomón Arroyo DO Status: REG CLI Study: Knee 4 or More Views Date of Exam: 01/05/18 Exam# [id number] Ordering Dr: Salomón Arroyo DO HISTORY: FALL. PAIN COMPARISON: None FINDINGS: XR Knee Complete 4 Views or More: No fracture or acute disease. Mild narrowing of the medial and lateral joint space compartments. Chondrocalcinosis of the tibiofemoral joint, more so at the medial compartment. The patellofemoral joint appears preserved. No bony erosions or joint effusion. Mild spurring of the anterior superior margin of the patella at the quadriceps insertion. RAD/Knee 4 or More Views IMPRESSION: 1. Left knee mild degenerative arthritis with chondrocalcinosis (pseudogout). 2. No fracture or acute disease. 3. Mild patellar spurring. at 0644 Reported and signed by: Sammy Maher MD Electronically Signed: Sammy Maher, at 6:42 EST Tel , Service support , CC: Salomón Arroyo DO Police Captain Senior: Signed INITAL EVALUATION (1) Observed: 12/15/2017 Status: F Source: [place] - PT 3:26 PM [facility] REPOSITORY [facility] [address] [place] [address] [address] [place], [place] [address] Fax REHABILITATION SERVICES INITIAL EVALUATION MR#: [id number] Acct: [id number] Name: RODOLFO HINTON Rep #: [id number] : 1960 57 From: Francesco Osorio PT, Cert. T, [facility] Referring Dr.: Salomón Arroyo DO Status: REG RCR Insurance: [facility] SELF PAY INSURANCE Patient's Visit Information RODOLFO HINTON is a 57 year old M referred to Physical Therapy by Salomón Arroyo DO with a diagnosis of CERVICAL RADICULOPATHY,SPONDYLOLYSIS. Date of Evaluation: 12/15/17 Physical Therapist: Francesco Osorio PT, - Visit Plan Frequency: 2x /Week Duration: 4 Weeks Plan: Intially US ,manual therapy cervical traction monitor left arm symptoms ,doesnt respond to cold ,MHP okay ,started on right rotation and lateral flexion only,. progress to postural ex's as able - Subjective Subjective: This 57 y/o male presents to physical therapy with cervical radiculapthy affects left arm. Patient has had cervical pain for several months. Patient located of pain base of cervical spine and left arm to fingers. Currently,symptoms located at shoulder anterior aspect to upper arm . Symptoms worse with looking ups,turning to left ,poor ROM to left,lifting,sitting. Symptoms better with turning to right. Pain affects sleeping. C/O parathesia/tingling left arm. Intermitant DAWSON .C/O dizziness but has vertigo issues.No trauma ot treatment for cevical spine. Patient had MRI several years ago. No pain management. VOCATION: retired. SOCIAL: - Pain Bilateral Neck Pain Intensity (Out of 10): 7 Pain Intensity Range: 10 Left Shoulder Pain Intensity (Out of 10): 3 Pain Intensity Range: 10 - Objective POSTURE: mild foward posture ,head foward. NEURO: c/o parathesia/tingling left arm,C5-6-7 2/3,mytome weakness C5-6,C6-7. AROM: BUE WFL. MMT: left shoulder 3+/5 anterior /lateral deltoid,bicep ,tricep 3+/5 ,wrist 4-/5. CERVICAL ROM: flexion mod loss pain ,lateral flexion/rotation to left mofd/severe loss pain,right mod loss. PALPATION: tender UT/levator - Special Tests C/S Radiculapathy - Left Upper limb tension test: Negative C/S Radiculapathy - Right Upper limb tension test: Negative C/S Radiculapathy - Left Spurlings: Positive C/S Radiculapathy - Right Spurlings: Positive C/S Radiculapathy - Left Cervical distraction: Negative C/S Radiculapathy - Right Cervical distraction: Negative Sharp Latesha: Negative Vertebral Artery Test: Negative Alar Ligament Test: Negative Cervical Sitting: Protrusion - Mechanical Response: No effect Cervical Sitting: Protrusion - Symptoms During Testing: Increases Cervical Sitting: Protrusion - Symptoms After Testing: Worse Cervical Sitting: Retraction - Mechanical Response: No effect Cervical Sitting: Retraction - Symptoms During Testing: Increases Cervical Sitting: Retraction - Symptoms After Testing: Worse Cervical Sitting: Retraction-Extension - Mechanical Response: No effect Cerv Sitting: Retraction-Extension - Symptoms During Testing: Increases Cerv Sitting: Retraction-Extension - Symptoms After Testing: Worse Cervical Sitting: Sidebend Right - Mechanical Response: No effect Cervical Sitting: Sidebend Right - Symptoms During Testing: Decreases Cervical Sitting: Sidebend Right - Symptoms After Testing: Better Cervical Sitting: Sidebend Left - Mechanical Response: No effect Cervical Sitting: Sidebend Left - Symptoms During Testing: Increases Cervical Sitting: Sidebend Left - Symptoms After Testing: Worse Cervical Sitting: Rotation Right - Mechanical Response: No effect Cervical Sitting: Rotation Right - Symptoms During Testing: Decreases Cervical Sitting: Rotation Right - Symptoms After Testing: No better Cervical Sitting: Rotation Left - Mechanical Response: No effect Cervical Sitting: Rotation Left - Symptoms During Testing: Increases Cervical Sitting: Rotation Left - Symptoms After Testing: Worse Cervical Sitting: Flexion - Mechanical Response: No effect Cervical Sitting: Flexion - Symptoms During Testing: Abolishes Cervical Sitting: Flexion - Symptoms After Testing: Worse - Goals Goal 1:: Patient to be Independant with HEP Goal Time Frame: 4-6 Weeks Goal 2:: Patient to improve posture for ADL'S Goal Time Frame: 4-6 Weeks Goal 3:: Patient to decrease pain by 50% or greater to improve function. Goal Time Frame: 4-6 Weeks Goal 4:: Patient improve cervical ROM for function of recovery Goal Time Frame: 4-6 Weeks Goal 5:: Patient increase strength of left UE 4-/5 to improve mytomes. Goal Time Frame: 4-6 Weeks Goal 6:: Patient to improve neck owsestry score by 5 points or greater to improve function. Goal Time Frame: 4-6 Weeks - Rehabilitation Potential Physical Therapy Diagnosis: This patient has cervical radiculopathy due to possible lateral stenosis with pain worse with movement to left side better opposite side ,and extension ,+ mytome weakness ,there may be some disc involvemt as well. Patient did have MRI showed multiple DDD,SPURS couple years ago. Rehabilitation Potential: Good - Anticipated Interventions Patient/Client Instruction: Educate patient on: Condition, Plan of Care For the Purpose of:: To decrease pain, To increase ROM, To improve muscle performance and motor function, To improve ability to perform ADL's, To increase tolerance to activity/condition/position, To improve ability of physical actions for home/community/work/leisure, To improve health of tissue, To decrease soft tissue restriction, To increase flexibility/ROM, To improve ability to perform tasks related to life management Therapeutic Exercise to Include: Strength training, Postural training, Active ROM Comment: cervical ROM For the Purpose of:: To decrease pain, To increase ROM, To improve nutrient delivery to tissue, To increase oxygenation perfusion, To improve health of tissue, To decrease soft tissue restriction, To increase flexibility/ROM, To improve ability to perform tasks related to life management Manual Therapy Techniques to Include: Mobilization, Other Comment: CERVICAL TRACTION For the Purpose of:: To decrease pain, To increase ROM, To improve muscle performance and motor function, To improve health of tissue, To decrease soft tissue restriction, To increase flexibility/ROM TENS: Yes IF ES: Yes Thermo therapy (hot pack): Yes Ultrasound (thermal/non thermal): Yes Intermittent cervical traction: Yes - 15-20# For the Purpose of:: To decrease pain, To increase ROM, To improve nutrient delivery to tissue, To increase oxygenation perfusion, To improve health of tissue, To decrease soft tissue restriction Thank you for the opportunity to evaluate your patient. For Medicare and Medicare HMO plans, please review the plan of care and approve it. It will need to be FAXED BACK to us at [phone] for Medicare purposes. Please let me know if there are questions or concerns regarding this plan of care. Physician Signature: Date: <Electronically signed by Francesco Osorio PT, Cert. T, OCS> 12/15/17 1526 CC: Salomón Arroyo DO MOLLY Signed For Medicare only, by signing this I certify the plan of care. Physicians Signature Date L/S SPINE MIN 4 Observed: 04/10/2017 Status: F Source: [place] VIEWS 4:31 PM [facility] REPOSITORY [facility] Imaging Services [address] [place] [address] [place] [address] L/S Spine Min 4 Views MR#: [id number] Acct: [id number] Name: RODOLFO HINTON Rep #: [id number] : 1960 M 57 From: Moise Darnell MD PCP: Salomón Arroyo DO Status: REG CLI Study: L/S Spine Min 4 Views Date of Exam: 04/10/17 Exam# [id number] Ordering Dr: Salomón Arroyo DO STUDY: X-RAY - LUMBAR SPINE REASON FOR EXAM: Male, 57 years old. Back pain. TECHNIQUE: 5 view(s) of the lumbar spine were obtained. COMPARISON: None FINDINGS: There is straightening of the normal lumbar lordosis. There is a dextroscoliosis of the lumbar spine. There is a normal alignment of the vertebrae. There is multilevel endplate spondylosis of the lumbar vertebrae. There is multi-level degenerative disc disease with multi-level disc space narrowing. There is no demonstrated fracture. The soft tissue structures are unremarkable. RAD/L/S Spine Min 4 Views IMPRESSION: Degenerative changes and dextroconvex scoliosis. Electronically Signed: Moise Darnell MD at 13:09 EST , Service support , CC: Salomón Arroyo DO Police Captain Senior: Signed ALLERGIES ALLERGIES DATE TYPE / CODE NAME / CODE REACTION SEVERITY SOURCE 2018 Drug lisinopril/F0060 Pain in joints Unknown [facility] Allergy/416 19398(RXNORM) Hospital 502559(SNOM Repository ED CT) 03/09/2018 Drug hydrochlorothiaz Rash Unknown [facility] Allergy/416 robert/[id number]( Hospital 123941(SNOM XNORM) Repository ED CT) 03/09/2018 Drug chocolate Rash Unknown [facility] Allergy/416 flavor/[id number] Hospital 348933(SNOM 3(RXNORM) Repository ED CT) ENCOUNTERS ENCOUNTERS ADMIT/DISCHARGE ACCOUNT NUMBER ADMITTING ENCOUNTER LOCATION SOURCE CLASS 03/13/2018 [id number] Ambulatory BMSBuilding: [place] [facility].CF[facility] Repository 03/13/2018/03/13/19 [id number] Ambulatory [address] ding:SDCRoom Repository : AC18 03/08/2018/03/08/19 [id number] Ambulatory BMSBuilding: [place] 19 BMS.[facility] Repository 03/03/2018 [id number] Ambulatory General acute hospital ding:MRI Repository 02/12/2018 [id number] Ambulatory General acute hospital ding:PT Repository 01/30/2018 [id number] Ambulatory Building:[facility] Repository 01/25/2018/01/26/20 [id number] Ambulatory BMSBuilding: [place] [facility] BMS.[facility] Repository 01/24/2018/01/25/20 [id number] Ambulatory [address] ding:PT Repository 01/05/2018 [id number] Ambulatory General acute hospital ding:HPRAD Repository 01/02/2018 [id number] Ambulatory Building:[facility] Repository 08/31/2017 [id number] Ambulatory Building:[address] Repository 08/31/2017 [id number] Ambulatory Building:[address] Repository 08/01/2017 [id number] Ambulatory Building:[facility] Repository 07/28/2017 [id number] Ambulatory Building:[address] Repository 05/16/2017 [id number] Ambulatory Building:[facility] Repository 04/10/2017 [id number] Ambulatory General acute hospital ding:MTRAD Repository PAYERS PAYERS ENCOUNTER GUARANTOR PAYER SUBSCRIBER SOURCE 03/13/2018 RODOLFO Fofana Primary [address]HA[address] RAMIRES [id number] Insurance:MEDICAL JACKSONDOB: [facility] [id number] Number: Repository [id number]: 330 [id number] [phone] (HP) Date:8788-74-20RI [address] [address]YN: 03/13/2018 Secondary NOT GIVENUNK [place] Insurance:SELF PAY Community INSURANCEPolicy Number: Hospital Effective Repository Date:2018-03-13 03/13/2018 RODOLFO Brigido Primary RACHAEL [address] [id number] Insurance:MEDICAL CLANCYDOB: [facility] [id number] Number: Repository [id number]: 330 [id number] [phone] (HP) Date:2394-99-49OL [address] [address]ZG: 03/13/2018 Secondary NOT GIVENUNK [place] Insurance:SELF PAY Community INSURANCEPolicy Number: Hospital Effective Repository Date:2018-03-09 03/08/2018 RODOLFO Brigido Primary RACHAEL [place] [id number] Insurance:MEDICAL CLANCYDOB: [facility] [id number], [place] Number: Repository [address]Rby: 330 [id number] [phone] (HP) Date:3066-29-05PL [address] [address]LD: 03/08/2018 Secondary NOT GIVENUNK Krishna Insurance:SELF PAY Community INSURANCEPolicy Number: Hospital Effective Repository Date:2018-03-07 03/03/2018 RODOLFO Brigido Primary RACHAEL Keller [id number] Insurance:MEDICAL CLANCYDOB: [facility] [id number] [place], [place] Number: Repository [id number]: [phone] [id number] [phone] (HP) Date:6922-96-26OD [address] [address]BP: 03/03/2018 Secondary NOT GIVENUNK Krishna Insurance:SELF PAY Community INSURANCEPolicy Number: Hospital Effective Repository Date:2018-03-01 02/12/2018 RODOLFO Fofana Primary RACHAEL Keller [id number] Insurance:MEDICAL JACKSONDOB: [facility] OLD [facility] [id number] [place], [place] Number: Repository [id number]: [phone] [id number] [phone] (HP) Date:6904-70-30FX [address] [address]IW: 02/12/2018 Secondary NOT GIVENUNK Krishna Insurance:SELF PAY Community INSURANCEPolicy Number: Hospital Effective Repository Date:2018-01-25 01/30/2018 RODOLFO Fofana Primary RACHAEL [facility] [place] Number: [id number] [facility] [id number] 8 [facility] Date:4224[place]10-[place] Name:[facility] [place], [place] [address]Usb: [phone]: [phone] (HP) 01/25/2018 RODOLFO Fofana Primary RACHAEL Keller [id number] Insurance:MEDICAL JACKSONDOB: [facility] [id number] [place] Number: Repository [id number]: [phone] [id number] [phone] () Date:8332-03-65YQ [address] [address]AG: 01/25/2018 Secondary NOT GIVENUNK Krishna Insurance:SELF PAY Community INSURANCEPolicy Number: Hospital Effective Repository Date:2018-01-25 01/24/2018 Rodolfo Fofana Primary RACHAEL Keller [id number] [address] Insurance:MEDICAL CLANCYDOB: [facility] [id number] [place] Number: Repository [id number]: [phone] [id number] [phone] (HP) Date:6429-58-82LJ [address] [address]AL: 01/24/2018 Secondary NOT GIVENUNK [place] Insurance:SELF PAY Community INSURANCEPolicy Number: Hospital Effective Repository Date:2017-12-15 01/05/2018 Rodolfo Fofana Primary RACHAEL Keller [id number] Insurance:MEDICAL [facility]: [facility] [id number] [place] Number: Repository [id number]: [phone] [id number] [phone] (HP) Date:0869-38-27ND [address] [address]FO: 01/05/2018 Secondary NOT GIVENUNK Krishna Insurance:SELF PAY Community INSURANCEPolicy Number: Hospital Effective Repository Date:2018-01-05 01/02/2018 RODOLFO Fofana Primary RACHAEL K [facility] Insurance:[facility]: [place] Number: [id number] [facility] [id number] [address] [place] [address] Date:6337-96-02Zdaz [place] Repository [place], [place] Name:[place], [place] [address]Ada: [phone]: (HP) [phone] (HP) 08/31/2017 RODOLFO Fofana Primary Insurance:MMO RACHAEL K [facility]: [facility]: [place] Number: [id number] [facility] [id number] [address] [place] [address] Date:1958Kaje [place] Repository [place] Name[place] [address]Nvy: [phone], [place] [address]Git: [phone]) [phone]: [phone] (HP) 08/31/2017 RODOLFO Fofana Primary RACHAEL Juju [facility]: Insurance[facility]: [place] Number: [id number] [facility] [id number] [address] [place] [address] Date:2137-77-55Rxhy [place], [place] Name:[place], [place] [address]Iyv: [phone]: (HP) [phone] () 08/01/2017 RODOLFO A Primary Insurance:MMO RACHAEL K [facility]: [facility]: [place] Number: [id number] [facility] [id number] Date:8833-03-89Vktu [place], [place] Name:[place], [place] [address]Wbg: [phone], [place] [address]Nck: (HP) [phone]: [phone] (HP) 07/28/2017 RODOLFO Fofana Primary RACHAEL [facility]: Insurance:[facility]: [place] Number: [id number] [facility] [id number] Date:Plan Name:[place], [place] [address]Ulk: [phone]: (HP) [phone] () 05/16/2017 RODOLFO A Primary RACHAEL [facility]B: Insurance:[facility]: [place] Number: [id number] [facility] [id number] Date:Plan Name:MANAGED [place] Repository [place] [address]Fvo: [phone]: () [phone] () 04/10/2017 Rodolfo Brigido Primary RACHAEL HOY Krishna [id number] Insurance:[facility]: [facility] [id number] [facility] Number: Repository [place], [place] [id number] [id number]: Date:7174-36-74[phone]~33 [address], [place] 0-4 () [address]QY: 04/10/2017 Secondary NOT GIVENLENARD AlonzoKrishna Insurance:SELF PAY [facility] Number[facility] Effective Repository Date:2017-04-10
== END 2018-03-13 14:49 | disposition home or self-care (01) ==
LOC: SDC 10:04 → AC 10:08
PROVIDERS: Family Provider Family Medicine; PCP Family Medicine; Referring Provider Orthopaedic Surgery; Visit Provider Orthopaedic Surgery
PROC: (CPT 29870; principal; 2018-03-13 11:25)
DX: S83.242A Other tear of medial meniscus, current injury, left knee, initial encounter (principal); S83.282A Other tear of lateral meniscus, current injury, left knee, initial encounter; W19.XXXA Unspecified fall, initial encounter; M94.262 Chondromalacia, left knee; M17.12 Unilateral primary osteoarthritis, left knee; I10 Essential (primary) hypertension; R73.03 Prediabetes; F17.220 Nicotine dependence, chewing tobacco, uncomplicated; Z79.82 Long term (current) use of aspirin; Z79.899 Other long term (current) drug therapy
CPT/HCPCS: 29880; 80048; 82962; 85027; 85730; J7120; J2405

== ENCOUNTER → 2018-05-15 13:50 | Outpatient (CLI) | payer OTHER, SELFPAY ==
[2018-03-26 08:57] VITALS: BMI 30.2
--- NOTE | 2018-05-15 13:55 | RAD_ITS ---
STUDY: X-RAY CHEST REASON FOR EXAM: Male, 58 years old. Shortness of breath. TECHNIQUE: PA and lateral views of the chest. COMPARISON: April 09, 2015 FINDINGS: The lungs are hyperinflated. There is no new focal consolidation. Normal size heart. Normal mediastinum and benson. Normal visualized pulmonary arteries. Normal visualized aortic arch and descending thoracic aorta. There are diffuse degenerative changes of the visualized thoracic spine. Normal visualized ribs, clavicles, and shoulders. There is no demonstrated abnormality of the visualized soft tissue structures of the upper abdomen. RAD/Chest PA and Lateral IMPRESSION: Hyperinflated lungs may reflect underlying COPD. Electronically Signed: Emma Piper MD at 10:11 EDT Tel , Service support ,
== END ==
PROVIDERS: Family Provider Family Medicine; PCP Family Medicine; Referring Provider Family Medicine; Visit Provider Family Medicine
DX: R05 Cough (principal); R06.02 Shortness of breath
CPT/HCPCS: 71046

== ENCOUNTER → 2018-06-08 07:52 | Outpatient (CLI) | payer OTHER, SELFPAY ==
[2018-03-26 08:57] VITALS: BMI 30.2
--- NOTE | 2018-06-08 13:19 | PFTCOMP ---
COMPLETE PULMONARY FUNCTION TEST INTERPRETATION Brief HPI: Patient is a 58 year old male, currently under the care of Dr. Arroyo, who presents to [facility] for complete pulmonary function tests secondary to diagnosis of cough. Respiratory therapist reports good effort and reproducible results. Interpretation: Forced expiration spirometry shows no large airways obstructive ventilatory defect with an FEV1 of 91% predicted. There is no significant bronchodilator response by strict ATS criteria. Spirograms are of good quality and plateau normally. The respiratory flow volume loop shows a normal pattern. Lung volumes by body plethysmography show a mildly decreased total lung capacity at 6.18 L, 84% predicted. All other lung volumes are reduced symmetrically. Diffusion capacity by carbon monoxide is normal at 87% predicted. The airway resistance is normal. No previous pulmonary function tests were available for review. Impression: Mild restrictive ventilatory defect with preserved diffusion capacity in a pattern consistent with musculoskeletal limitation.
== END ==
PROVIDERS: Family Provider Family Medicine; PCP Family Medicine; Referring Provider Family Medicine; Visit Provider Family Medicine
DX: J45.909 Unspecified asthma, uncomplicated (principal)
CPT/HCPCS: 94060; 94726; 94729

== ENCOUNTER → 2018-07-12 06:32 | Outpatient (CLI) | payer OTHER, SELFPAY ==
[2018-06-28 14:03] VITALS: BMI 30.9
--- NOTE | 2018-07-12 06:33 | CT_ITS ---
STUDY: CT CHEST WITHOUT CONTRAST REASON FOR EXAM: Male, 58 years old. Restrictive lung disease RADIATION DOSAGE (If Supplied By Facility): CTDIvol = ( 18.81 ) mGy, DLP = ( 705.23 ) mGycm TECHNIQUE: Transaxial imaging was performed without the administration of intravenous contrast material. Sagittal and coronal 2-D MPR Individualized dose optimization techniques were used for this CT. COMPARISON: X-ray chest 04/09/2015, CT chest 12/31/2015 FINDINGS: Cervical vertebral: Unremarkable. Body wall soft tissues: Unremarkable. Upper abdomen: Unremarkable. Osseous structures: Scoliosis, kyphosis, mild multilevel thoracic spondylosis. No acute osseous process. Mediastinum: No acute process. Small sliding hiatal hernia. Cardiovascular: Normal heart size without pericardial effusion. No visible coronary calcifications. Epicardial lipomatosis and mild lipomatous hypertrophy of the interatrial septum. Nondilated aorta. Nondilated central pulmonary arteries. Lungs: There is generalized hyperlucency of the lungs suggesting underlying COPD associated with flattening of the hemidiaphragms. There are no mango features of paraseptal or centrilobular emphysema. There is no evidence of pulmonary fibrosis. Airways normal. No suspicious focal lesions. CT/Chest without Contrast IMPRESSION: Evidence of COPD without acute superimposed cardiopulmonary process. Electronically Signed: Coleman Mcdaniel MD at 17:23 EDT Tel , Service support ,
== END ==
PROVIDERS: Family Provider Family Medicine; PCP Family Medicine; Referring Provider Internal Medicine Critical Care Medicine; Visit Provider Internal Medicine Critical Care Medicine
DX: J98.4 Other disorders of lung (principal)
CPT/HCPCS: 71250

== ENCOUNTER → 2018-10-15 12:05 | Outpatient (CLI) | payer OTHER, SELFPAY ==
[2018-10-15 11:01] VITALS: BMI 31.1
== END ==
PROVIDERS: Family Provider Family Medicine; PCP Family Medicine; Referring Provider Internal Medicine Critical Care Medicine; Visit Provider Internal Medicine Critical Care Medicine
DX: J98.4 Other disorders of lung (principal)
CPT/HCPCS: 94667

== ENCOUNTER 2018-11-02 20:16 | Emergency (ER) | payer OTHER, SELFPAY ==
[2018-10-15 11:01] VITALS: BMI 31.1
[2018-11-02 20:17] VITALS: BP 125/89; PULSE 80; RESP 24; TEMP 36.3; O2SAT 94; BMI 30.9
--- NOTE | 2018-11-02 20:20 | ED.RN ---
PT NOW REPORTS CHEST TIGHTNESS. RESPIRATORY THERAPY AWARE.
--- NOTE | 2018-11-02 20:25 | EKG12_ITS ---
Test Reason : CHEST TIGHTNESS Blood Pressure : / mmHG Vent. Rate : 074 BPM Atrial Rate : 074 BPM P-R Int : 172 ms QRS Dur : 094 ms QT Int : 376 ms P-R-T Axes : 026 038 041 degrees QTc Int : 417 ms Normal sinus rhythm Normal ECG Confirmed by SHALINI NUNEZ, INGE ([id number]), associate entertainment editor MIS LAUREN ([id number]) on 11/06/2018 11:57:10 AM Referred By: NICOLA Confirmed By:MORRIS LOYA MD
--- NOTE | 2018-11-02 20:25 | RAD_ITS ---
STUDY: X-RAY CHEST REASON FOR EXAM: Male, 58 years old. Shortness of breath. TECHNIQUE: Single AP portable view of the chest. COMPARISON: Chest, July 15, 2018. FINDINGS: The lungs are clear and expanded. There is no demonstrated pleural abnormality. Normal size heart. Normal mediastinum and benson. Normal visualized pulmonary arteries. Normal visualized aortic arch and descending thoracic aorta. There is mild levoscoliosis and degenerative changes of the thoracolumbar spine. There is degenerative osteoarthritis of the bilateral shoulders. There is no demonstrated abnormality of the visualized soft tissue structures of the upper abdomen. RAD/Chest 1 View (Portable) IMPRESSION: Degenerative changes, as described above. No demonstrated acute cardiopulmonary process. Electronically Signed: Bobo Carrington DO at 20:53 EDT Tel [phone], Service support ,
--- NOTE | 2018-11-02 20:27 | ED.DCSUM_ITS ---
History of Present Illness Chief Complaint: Shortness of Breath Informant: Patient Narrative: Patient presents with cough and shortness of breath they got worse today, he has a history of bronchiectasis, he denies any fever or chills. Cough is productive but he has white sputum which is somewhat worsened. He has no chest pain or back pain. No abdominal pain. No sick contacts. 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, left knee surgery, right shoulder s urgery, sinus surgery Smoking Status: Never smoker - Family History Maternal Family History: Family History (Last Reviewed 10/15/18 @ 11:03 by Lizabeth Navas) Father COPD (chronic obstructive pulmonary disease) Cancer Heart disease TIA (transient ischemic attack) Diabetes Mother COPD (chronic obstructive pulmonary disease) Cancer Family History: Reports: No pertinent history Paternal Family History: Family History (Last Reviewed 10/15/18 @ 11:03 by Lizabeth Navas) Father COPD (chronic obstructive pulmonary disease) Cancer Heart disease TIA (transient ischemic attack) Diabetes Mother COPD (chronic obstructive pulmonary disease) Cancer Family History: Reports: Diabetes, Heart Disease, Hypertension Review of Systems All systems negative except as indicated General: Denies: Fever Cardiovascular: Denies: Chest pain, Palpitations Respiratory: Reports: Dyspnea, Cough Gastrointestinal: Denies: Nausea Musculoskeletal: Denies: Myalgias Neurological: Denies: Weakness Physical Exam Vital Signs/Narrative: Vital Signs Temp Pulse Resp BP Pulse Ox 11/02/18 20:17 97.4 F L 80 24 H 125/89 H 94 Inital Vital Signs reviewed: Yes General: Well nourished, - - He appears in slight distress ENT: Moist mucous membranes Neck: Supple Cardiovascular: Regular rate, Regular rhythm Respiratory: - - He has bilateral coarse breath sounds. Slight wheezing. Abdomen: Soft, Nontender Back: Nontender, Normal Inspection Extremities: No edema Skin: Normal color Neurological: Alert, Oriented x3 Diagnostic/Tx/Re-eval - Rhythm Strip Rhythm Strip: Sinus Rhythm Rate: 74 Ectopy: None - EKG Initial EKG Interpretation: Sinus Rhythm, No Acute Injury Pattern, - - rt 74 int by Ed doctor ED Disposition - Plan for ED Patient: Referrals: Salomón Arroyo DO [Primary Care Provider] -
[2018-11-02 20:50] VITALS: PULSE 75; RESP 8
[2018-11-02] MEDS: Ipratropium/Albuterol Sulfate 3 ML AMPUL.NEB INHALATION (20:50)
[2018-11-02 20:58] LABS: Absolute Lymphocyte Count 1.51 X10^3/uL (0.83-4.51); Absolute Neutrophil Count 4.9 X10^3/uL (2.0-7.7); Basophil# 0.04 X10^3/uL; Basophil% 0.6 % (0-1); Eosinophil# 0.11 X10^3/uL; Eosinophils% 1.6 % (0-5); Hematocrit 46.9 % (40-54); Hemoglobin 15.9 g/dL (13.0-16.5); Lymphocyte # 1.51 X10^3/ul (4.0); Lymphocyte % 21.7 % (19-41); Mean Corp Hgb Conc 33.9 g/dL (32-36); Mean Corpuscular Hgb 29.6 pg (27.0-32.0); Mean Corpuscular Volume 87.2 fL (80-94); Mean Platelet Vol. 11.6 fl (6.2-12.0); Monocyte% 5.8 % (0-10); NRBC Flagged by Analyzer 0 % (0-5); Neutrophil # 4.88 X10^3/uL (2.7-7.7); Neutrophil % 70.2 % (47-70); POSITIVE COUNT YES; Platelet Count 151 K/mm3 (150-450); RBC Distribution Width CV 13.8 % (11.6-14.6); RBC Distribution Width SD 43.8 fl (35.1-43.9); Red Blood Count 5.38 M/mm3 (4.6-6.2)
[2018-11-02 20:59] VITALS: O2SAT 96
[2018-11-02 21:00] LABS: Differential Indicated SCAN CRITERIA MET
[2018-11-02] MEDS: MethylPREDNISolone 125 MG/2 ML Vial IV (21:06)
[2018-11-02 21:08] LABS: Anion Gap 5 (5-15); BUN 16 mg/dL (7-18); Calcium,Total 9.1 mg/dL (8.5-10.1); Chloride 109 mmol/L (98-107); Creatinine, Serum 1.46 mg/dL (0.70-1.30); EST Glomerular Filtration Rate 52 mL/min (>60); Est Glom Filt Rate - Afr Amer 63 mL/min (>60); Estimated Creatinine Clearance 60.81 ml/min; Glucose 176 mg/dL (74-106); Potassium 3.7 mmol/L (3.5-5.1); Sodium Level 139 mmol/L (136-145)
[2018-11-02 21:16] LABS: Differential Comment SCANNED
[2018-11-02 21:19] LABS: Platelet Estimate ADEQUATE (ADEQ); Platelet Morphology CLUMPED
--- NOTE | 2018-11-02 21:34 | ED.DEP ---
ED Disposition - Plan for ED Patient: Disposition: Home or Assisted Living Diagnosis: Bronchiectasis Instructions: BRONCHITIS, No Antibiotic (Adult) Referrals: Judson Peters MD [STAFF PHYSICIAN] - 3-5 Days
[2018-11-02] MEDS: Triamcinolone Acetonide 40 MG/ML Vial IM (21:42)
[2018-11-02 22:06] VITALS: BP 129/85; PULSE 67; RESP 16; O2SAT 93
== END 2018-11-02 22:15 | disposition home or self-care (01) ==
PROVIDERS: Emergency Provider Emergency Medicine; Family Provider Family Medicine; PCP Family Medicine
DX: R06.02 Shortness of breath (principal); I10 Essential (primary) hypertension; Z79.899 Other long term (current) drug therapy
CPT/HCPCS: 71045; 80048; 84484; 85025; 93005; 94640; 96372; 96374; 99285; A4216

== ENCOUNTER → 2019-03-27 12:37 | Outpatient (CLI) | payer OTHER, SELFPAY ==
[2018-10-15 11:01] VITALS: BMI 31.1
--- NOTE | 2019-03-27 15:08 | PFTCOMP_ITS ---
COMPLETE PULMONARY FUNCTION TEST INTERPRETATION Brief HPI: Patient is a 59 year old male, currently under the care of myself, who presents to [facility] for complete pulmonary function tests secondary to diagnosis of bronchiectasis. Respiratory therapist reports good effort and reproducible results. Interpretation: Forced expiration spirometry shows no large airways obstructive ventilatory defect with an FEV1 of 96% predicted. There is no significant bronchodilator response by strict ATS criteria. Spirograms are of good quality and plateau normally. The respiratory flow volume loop shows a normal pattern. Lung volumes by body plethysmography show a normal total lung capacity at 7.98 L, 108% predicted. All other lung volumes are within normal limits. Diffusion capacity by carbon monoxide is normal at 80% predicted. The airway resistance is normal. Compared to previous pulmonary function tests from 06/08/2018, there has been no significant change. Impression: These pulmonary function tests are grossly within normal limits.
== END ==
PROVIDERS: Family Provider Family Medicine; PCP Family Medicine; Referring Provider Internal Medicine Critical Care Medicine; Visit Provider Internal Medicine Critical Care Medicine
DX: J47.9 Bronchiectasis, uncomplicated (principal)
CPT/HCPCS: 94060; 94726; 94729

== ENCOUNTER → 2020-04-16 14:21 | Outpatient (CLI) | payer OTHER, SELFPAY ==
[2020-04-16 13:35] VITALS: BMI 31.6
== END ==
PROVIDERS: PCP Family Medicine; Visit Provider Nurse Practitioner Acute Care
DX: Z00.00 Encounter for general adult medical examination without abnormal findings (principal)

== ENCOUNTER → 2020-09-03 09:13 | Outpatient (CLI) | payer OTHER, SELFPAY ==
[2020-04-16 13:35] VITALS: BMI 31.6
--- NOTE | 2020-09-03 09:15 | RAD_ITS ---
INDICATION: R SCIATICA EXAMINATION/TECHNIQUE: X-RAY - XR Spine Lumbar Min 4 Views COMPARISON: 04/10/2017. FINDINGS: VERTEBRAE: Preserved vertebral body height. No fracture. Dextroscoliosis. No spondylolisthesis. Preservation of the normal lumbar lordosis. Severe multilevel facet arthropathy. DISCS: Severe multilevel degenerative disc disease and spondylosis. INCLUDED ABDOMEN: Included bowel gas pattern is non-obstructive. RAD/L/S Spine Min 4 Views IMPRESSION: Severe multilevel degenerative disc disease and spondylosis. Electronically Signed: Theo Nicholson MD at 23:06 EDT Tel , Service support ,
[2020-09-03 12:20] LABS: Absolute Lymphocyte Count 1.52 X10^3/uL (0.83-4.51); Absolute Neutrophil Count 4.3 X10^3/uL (2.0-7.7); Basophil# 0.06 X10^3/uL; Basophil% 0.9 % (0-1); Eosinophils% 2.9 % (0-5); Hematocrit 47.7 % (40-54); Hemoglobin 15.9 g/dL (13.0-16.5); Lymphocyte # 1.52 X10^3/ul (0.83-4.51); Lymphocyte % 22.3 % (19-41); Mean Corp Hgb Conc 33.3 g/dL (32-36); Mean Corpuscular Hgb 29.2 pg (27.0-32.0); Mean Corpuscular Volume 87.7 fL (80-94); Mean Platelet Vol. 10.2 fl (6.2-12.0); Monocyte# 0.72 X10^3/uL; Monocyte% 10.6 % (0-10); NRBC Flagged by Analyzer 0 % (0-5); Neutrophil # 4.29 X10^3/uL (2.7-7.7); Neutrophil % 62.9 % (47-70); Platelet Count 247 K/mm3 (150-450); RBC Distribution Width CV 13.8 % (11.6-14.6); Red Blood Count 5.44 M/mm3 (4.6-6.2); White Blood Count 6.8 K/mm3 (4.4-11.0)
[2020-09-03 12:47] LABS: ALB/GLOB Ratio 1.1 RATIO (0.9-2.4); AST(SGOT) 29 U/L (15-37); Alanine Aminotransfer ALT/SGPT 46 U/L (16-61); Alkaline Phosphatase 83 U/L (45-117); Anion Gap 9 (5-15); BUN 12 mg/dL (7-18); BUN/Creat Ratio 8.9 RATIO (10-20); Calcium,Total 9.1 mg/dL (8.5-10.1); Chloride 105 mmol/L (98-107); Cholesterol 185 mg/dL (200); Creatinine, Serum 1.35 mg/dL (0.70-1.30); EST Glomerular Filtration Rate 57 mL/min (>60); Est Glom Filt Rate - Afr Amer 69 mL/min (>60); Globulin 3.7 g/dL (2.2-4.2); Glucose 90 mg/dL (74-106); High Density Lipoprotein 35 mg/dL; PSA,Total - Annual Screen 0.55 ng/mL (0.00-4.00); Potassium 3.8 mmol/L (3.5-5.1); Protein, Total 7.7 g/dL (6.4-8.2); Sodium Level 135 mmol/L (136-145); Triglycerides 175 mg/dL; Very Low Density Lipoprotein 35 mg/dL (5-40)
[2020-09-03 13:08] LABS: Hemoglobin A1c 5.4 % (3.8-5.6)
== END ==
PROVIDERS: PCP Family Medicine; Referring Provider Family Medicine; Visit Provider Family Medicine
DX: I10 Essential (primary) hypertension (principal); M54.31 Sciatica, right side; Z12.5 Encounter for screening for malignant neoplasm of prostate; Z87.898 Personal history of other specified conditions; Z51.81 Encounter for therapeutic drug level monitoring
CPT/HCPCS: 36415; 72110; 80053; 80061; 83036; 84153; 85025; G0103

== ENCOUNTER → 2021-01-30 07:08 | Outpatient (CLI) | payer OTHER, SELFPAY ==
--- NOTE | 2021-01-30 07:32 | MRI_ITS ---
STUDY: MRI LUMBAR SPINE WITHOUT CONTRAST REASON FOR EXAM: Male, 60 years old. RT LUMBAR RADICULOPATHY TECHNIQUE: Standardized fat and water weighted pulse sequences were obtained in the sagittal and axial planes. COMPARISON: None FINDINGS: T12-L1: Normal endplates. Normal disc height, hydration and morphology. Normal bilateral facet joints. Normal central canal and bilateral lateral recesses. Normal bilateral intervertebral neural foramina. Normal lumbar lordosis. Moderate dextroscoliosis centered at L2. Normal conus medullaris that terminates at the L1. L1-2: Small left foraminal protrusion produces mild left neural foraminal stenosis. No central spinal stenosis. L2-3: Mild bilateral facet hypertrophy and ligament flavum hypertrophy. Mild bilobed disc protrusion and left foraminal protrusion produces mild spinal stenosis and mild bilateral neural foraminal stenosis. L3-4: Mild bilateral facet hypertrophy and ligamentum flavum hypertrophy. Severe loss of disc height with left foraminal osteophyte formation produces mild left neural foraminal stenosis. No central spinal stenosis. Associated Modic type II endplate changes. L4-5: Moderate bilateral facet hypertrophy and ligament flavum hypertrophy. Moderate broad disc protrusion produces moderate spinal stenosis with moderate bilateral lateral recess stenosis with abutment of the L5 nerve roots bilaterally and moderate bilateral neural foraminal stenosis per L5-S1: Moderate bilateral facet hypertrophy with fluid in the facet joints consistent with instability and moderate ligament flavum hypertrophy. Moderate size right foraminal protrusion produces moderate right neural foraminal stenosis with abutment of the right L5 nerve root laterally. No central spinal stenosis. Normal visualized sacral ala. Normal visualized paraspinous soft tissue structures. MRI/Spine Lumbar (Routine) IMPRESSION: Moderate dextroscoliosis and degenerative disc disease as described above. Electronically Signed: Coleman Iniguez MD at 8:58 EST Tel , Service support ,
== END ==
PROVIDERS: PCP Family Medicine; Visit Provider Family Medicine
DX: M54.17 Radiculopathy, lumbosacral region (principal)
CPT/HCPCS: 72148

== ENCOUNTER 2021-03-05 12:05 | Outpatient (CLI) | payer OTHER, SELFPAY ==
[2021-03-05 12:29] VITALS: BP 143/92; PULSE 61; RESP 18; TEMP 36.8; O2SAT 99; BMI 30.3
[2021-03-05] MEDS: 0.9% Saline Lock 10 ML Syringe IV (12:33)
[2021-03-05 13:14] VITALS: BP 123/85; PULSE 57; RESP 16; TEMP 36.9; O2SAT 98
[2021-03-05 14:14] VITALS: BP 128/88; PULSE 82; RESP 16; TEMP 36.6; O2SAT 98
== END 2021-03-05 23:59 | disposition home or self-care (01) ==
LOC: MS3OUT 12:05 → MS3 12:06
PROVIDERS: PCP Family Medicine; Referring Provider Nurse Practitioner Acute Care; Visit Provider Nurse Practitioner Acute Care
DX: Z23 Encounter for immunization (principal); U07.1 COVID-19
CPT/HCPCS: J7050; M0245; Q0245; A4216

== ENCOUNTER 2021-03-11 12:30 | Outpatient (RCR) | payer OTHER, SELFPAY ==
--- NOTE | 2021-02-10 09:21 | HP.PTEVAL_ITS ---
Patient's Visit Information CHI HINTON is a 60 year old M referred to Physical Therapy by Dr. Salo Sevilla DO with a diagnosis of LUMBAR SPONDYOSIS. Date of Evaluation: 02/10/21 Physical Therapist: Francesco Osorio, PT, Cert MDT, OCS - Visit Plan Frequency: 2x /Week Duration: 4 Weeks Plan: PT INTEREVTIONS GRADED DLS,PSOTURAL EX'S,LE FLEXANBILITY AND MODALTIES - Subjective This 60 y/o male presents tp physical therapy with lumbar lumbar spondylosis. Patient has had back pain many years ,but in August symptoms worse without etiology. Seen DR PARRY had MRI and x-rays DDD ,stenosis and protrusion disc. Pain described burning, ache. C/O paresthesia/tingling right hip. Coughing/sneezing +. Bowel/bladder -. Patient has had prior PT in past. Pain affects sleeping. Patient pain affects ability to work. Aggravating bending ,lifting, walking worse with paresthesia, standing and extended sitting and driving. Symptoms better with rest. Patient condition affects QOL. Patient maybe referred to pain management. VOCATION: retired. SOCIAL: . - Pain Bilateral Back Pain Intensity (Out of 10): 8 Pain Intensity Range: 10 Bilateral Lower Extremity Pain Intensity (Out of 10): 3 Pain Intensity Range: 10 Right Back Pain Intensity (Out of 10): 10 Pain Intensity Range: 10 Comment: right lateral hip - Objective POSTURE: mild forward posture. GAIT: ambulates with straight cane forward post ure slow anuradha. NEURO: denies paresthesia/tingling ,reflexes L3-,L4-5,L5-S1 1/3. SYMMTRIES : ALIGN. FLEXABILITY: hamstrings mod loss. MMT: quads/hams 4/5,nkle 4/5,hip flexion 4-/5. LUMBAR ROM: flexion mod/severe loss, side glides mod/severe loss, extension mod - Special Tests L/S Slump test left side: Negative L/S Slump test right side: Negative L/S Left Straight Leg Raise: Positive L/S Right Straight Leg Raise: Positive Lumbar Standing: Flexion - Mechanical Response: No effect Lumbar Standing: Flexion - Symptoms During Testing: Increases Lumbar Standing: Flexion - Symptoms After Testing: Worse Lumbar Standing: Extension - Mechanical Response: No effect Lumbar Standing: Extension - Symptoms During Testing: Increases Lumbar Standing: Extension - Symptoms After Testing: No worse Lumbar Standing: Right Side Glides - Mechanical Response: No effect Lumbar Standing: Right Side [place] - Symptoms During Testing: Increases Lumbar Standing: Right Side [place] - Symptoms After Testing: No better Lumbar Standing: Left Side [place] - Mechanical Response: No effect Lumbar Standing: Left Side [place] - Symptoms During Testing: Increases Lumbar Standing: Left Side [place] - Symptoms After Testing: Worse Lumbar Lying: Flexion - Mechanical Response: No effect Lumbar Lying: Flexion - Symptoms During Testing: Increases Lumbar Lying: Flexion - Symptoms After Testing: Worse Lumbar Lying: Extension - Mechanical Response: No effect Lumbar Lying: Extension - Symptoms During Testing: Increases Lumbar Lying: Extension - Symptoms After Testing: No worse - Balance/Special Test Scores Oswestry Low Back Score: 37 - Goals Goal 1:: Patient to be I with HEP back Goal Time Frame: 4-6 Weeks Goal 2:: Patient improve posture/body mechanics to improve function Goal Time Frame: 4-6 Weeks Goal 3:: Patient to demonstrate 50% improvement with decrease pain to improve function Goal Time Frame: 4-6 Weeks Goal 4:: Patient improve lumbar ROM for function of recovery Goal Time Frame: 4-6 Weeks Goal 5:: Patient to improve back owestry score by 5 points to improve QOL Goal Time Frame: 4-6 Weeks - Rehabilitation Potential Physical Therapy Diagnosis: This patient has lumbar pain with radicular symptoms with stenosis and protruding disc pain with positioning ,motion testing affects waling standing ,lifting and ADLS's thus will benefit from skilled PT Rehabilitation Potential: Good - Anticipated Interventions Patient/Client Instruction: Educate patient on: Condition, Plan of Care For the Purpose of:: To decrease pain, To improve nutrient delivery to tissue, To improve muscle performance and motor function, To improve ability to perform ADL's, To increase tolerance to activity/condition/position, To improve ability of physical actions for home/community/work/leisure, To improve health of tissue, To decrease soft tissue restriction, To increase flexibility/ROM, To reduce risk of recurrence Therapeutic Exercise to Include: Strength training, Postural training, Flexibilty training, Active ROM, Dynamic Lumbar Stabilization Comment: BLE For the Purpose of:: To decrease pain, To improve muscle performance and motor function, To improve ability to perform ADL's, To increase tolerance to activity/condition/position, To improve ability of physical actions for home/community/work/leisure, To improve health of tissue, To decrease soft tissue restriction, To increase flexibility/ROM, To prevent re-injury TENS: Yes IF ES: Yes Cryotherapy (ice pack, ice massage): Yes Thermo therapy (hot pack): Yes Ultrasound (thermal/non thermal): Yes For the Purpose of:: To decrease pain, To increase ROM, To improve nutrient delivery to tissue, To increase oxygenation perfusion, To improve health of tissue, To decrease soft tissue restriction Thank you for the opportunity to evaluate your patient. For Medicare and Medicare HMO plans, please review the plan of care and approve it. It will need to be FAXED BACK to us at [phone] for Medicare purposes. For Medicare only, by signing this I certify the plan of care. Please let me know if there are questions or concerns regarding this plan of care. Physician Signature: Date:
--- NOTE | 2021-05-25 10:36 | HP.PTDCSUM ---
It has been my pleasure to treat CHI HINTON referred by Dr. Salo Sevilla DO, with the diagnosis of LUMBAR SPONDYOSIS for a total of 5 visit(s). Discharge Date: Please see the following information for a summary of their discharge status. Subjective: I had COVID since last visit ,Hospitalized for 1 day. Today pain is not as pain right low back Bilateral Back Pain Intensity (Out of 10): 2 Bilateral Lower Extremity Pain Intensity (Out of 10): 2 Right Back Pain Intensity (Out of 10): 2 Objective/Function: POSTURE: mild forward posture. GAIT: ambulated with cane. LUMBAR ROM: flexion mod loss ,extension mod loss. MMT: quads/hams 4-/5,hip flexion 4-/5 Goal 1:: Patient to be I with HEP back Goal 2:: Patient improve posture/body mechanics to improve function Goal 3:: Patient to demonstrate 50% improvement with decrease pain to improve function Goal 4:: Patient improve lumbar ROM for function of recovery Goal 5:: Patient to improve back owestry score by 5 points to improve QOL Plan: RTD If there are questions or concerns regarding this patient's physical therapy, please feel free to call me at [phone]. Thank you for the referral of this patient. Sincerely, Francesco Osorio, PT, Cert MDT, OCS Balance/Gait/Functional tests - Balance/Special Test Scores Oswestry Low Back Score: 37
== END 2021-03-11 19:00 | disposition home or self-care (01) ==
LOC: PT 12:30
PROVIDERS: PCP Family Medicine; Referring Provider Orthopaedic Surgery; Visit Provider Orthopaedic Surgery
DX: M47.816 Spondylosis without myelopathy or radiculopathy, lumbar region (principal)
CPT/HCPCS: 97014; 97035; 97110; 97162; G0283

== ENCOUNTER 2021-04-12 15:16 | Outpatient (CLI) | payer OTHER, SELFPAY ==
--- NOTE | 2021-04-12 15:26 | RAD_ITS ---
STUDY: X-RAY - PELVIS AND RIGHT HIP REASON FOR EXAM: Male, 61 years old. PAIN TECHNIQUE: 3 views of the pelvis and hip. COMPARISON: 2016 FINDINGS: There is a non-specific bowel gas pattern. Normal visualized soft tissue structures. There is narrowing with cortical sclerosis and osteophyte formation of the sacroiliac joint consistent with degenerative osteoarthritic changes. Normal bilateral superior and inferior pubic rami. Normal pubic symphysis. Normal bilateral ischial tuberosities. Normal visualized femoral head. Normal acetabulum. There is moderate articular joint space narrowing of the hip. RAD/HIP, UNI W/ Pelvis 2-3 Views IMPRESSION: Age consistent degenerative changes, no acute findings or significant interval change Electronically Signed: Isidro Zayas MD at 13:15 EST ,
== END 2021-04-12 23:59 | disposition home or self-care (01) ==
LOC: MTRAD 15:19
PROVIDERS: PCP Family Medicine; Referring Provider Family Medicine; Visit Provider Family Medicine
DX: M25.551 Pain in right hip (principal)
CPT/HCPCS: 73502

== ENCOUNTER → 2021-09-14 | Outpatient (CLI) | payer OTHER, SELFPAY ==
[2021-09-14 12:30] LABS: Absolute Lymphocyte Count 1.41 X10^3/uL (0.83-4.51); Absolute Neutrophil Count 3.2 X10^3/uL (2.0-7.7); Basophil# 0.05 X10^3/uL; Basophil% 0.9 % (0-1); Eosinophil# 0.18 X10^3/uL; Eosinophils% 3.4 % (0-5); Hematocrit 45.2 % (40-54); Hemoglobin 15.3 g/dL (13.0-16.5); Lymphocyte # 1.41 X10^3/ul (0.83-4.51); Lymphocyte % 26.7 % (19-41); Mean Corp Hgb Conc 33.8 g/dL (32-36); Mean Corpuscular Hgb 29.4 pg (27.0-32.0); Mean Corpuscular Volume 86.9 fL (80-94); Mean Platelet Vol. 10.2 fl (6.2-12.0); Monocyte# 0.49 X10^3/uL; Monocyte% 9.3 % (0-10); NRBC Flagged by Analyzer 0 % (0-5); Neutrophil # 3.16 X10^3/uL (2.7-7.7); Neutrophil % 59.7 % (47-70); Platelet Count 203 K/mm3 (150-450); RBC Distribution Width CV 13.6 % (11.6-14.6); RBC Distribution Width SD 43.3 fl (35.1-43.9); White Blood Count 5.3 K/mm3 (4.4-11.0)
[2021-09-14 12:39] LABS: Hemoglobin A1c 5.2 % (3.8-5.6)
[2021-09-14 12:50] LABS: ALB/GLOB Ratio 1.1 RATIO (0.9-2.4); AST(SGOT) 17 U/L (15-37); Alanine Aminotransfer ALT/SGPT 31 U/L (16-61); Albumin, Serum 3.8 g/dL (3.2-5.0); Alkaline Phosphatase 85 U/L (45-117); Anion Gap 8 (5-15); BUN 12 mg/dL (7-18); BUN/Creat Ratio 9.6 RATIO (10-20); Calcium,Total 9.3 mg/dL (8.5-10.1); Chloride 108 mmol/L (98-107); Cholesterol 148 mg/dL (200); Creatinine, Serum 1.25 mg/dL (0.70-1.30); EST Glomerular Filtration Rate 62 mL/min (>60); Est Glom Filt Rate - Afr Amer 75 mL/min (>60); Globulin 3.5 g/dL (2.2-4.2); Glucose 99 mg/dL (74-106); High Density Lipoprotein 30 mg/dL; PSA,Total - Annual Screen 0.58 ng/mL (0.00-4.00); Potassium 3.8 mmol/L (3.5-5.1); Protein, Total 7.3 g/dL (6.4-8.2); Sodium Level 138 mmol/L (136-145); Triglycerides 177 mg/dL; Very Low Density Lipoprotein 35 mg/dL (5-40)
== END | disposition home or self-care (01) ==
LOC: MTLAB 10:17
PROVIDERS: PCP Family Medicine; Referring Provider Family Medicine; Visit Provider Family Medicine
DX: I12.9 Hypertensive chronic kidney disease with stage 1 through stage 4 chronic kidney disease, or unspecified chronic kidney disease (principal); N18.31 Chronic kidney disease, stage 3a; Z12.5 Encounter for screening for malignant neoplasm of prostate; R73.01 Impaired fasting glucose
CPT/HCPCS: 36415; 80053; 80061; 83036; 84153; 85025; G0103

== ENCOUNTER → 2022-06-10 | Outpatient (CLI) | payer OTHER, SELFPAY ==
[2022-06-10 17:57] LABS: Absolute Lymphocyte Count 1.03 X10^3/uL (0.83-4.51); Absolute Neutrophil Count 4.6 X10^3/uL (2.0-7.7); Basophil# 0.06 X10^3/uL; Basophil% 0.9 % (0-1); Eosinophil# 0.13 X10^3/uL; Hematocrit 47.4 % (40-54); Hemoglobin 15.4 g/dL (13.0-16.5); Lymphocyte # 1.03 X10^3/ul (0.83-4.51); Lymphocyte % 16.2 % (19-41); Mean Corp Hgb Conc 32.5 g/dL (32-36); Mean Corpuscular Hgb 28.9 pg (27.0-32.0); Mean Corpuscular Volume 89.1 fL (80-94); Mean Platelet Vol. 10.5 fl (6.2-12.0); Monocyte# 0.54 X10^3/uL; Monocyte% 8.5 % (0-10); NRBC Flagged by Analyzer 0 % (0-5); Neutrophil # 4.59 X10^3/uL (2.7-7.7); Neutrophil % 72.2 % (47-70); Platelet Count 223 K/mm3 (150-450); RBC Distribution Width CV 14.3 % (11.6-14.6); Red Blood Count 5.32 M/mm3 (4.6-6.2); White Blood Count 6.4 K/mm3 (4.4-11.0)
[2022-06-10 18:40] LABS: Vitamin B12 532 pg/mL (211-911); Vitamin D,25 Hydroxy 35.4 ng/mL
[2022-06-10 18:41] LABS: ALB/GLOB Ratio 1.1 RATIO (0.9-2.4); AST(SGOT) 25 U/L (15-37); Alanine Aminotransfer ALT/SGPT 40 U/L (16-61); Albumin, Serum 3.9 g/dL (3.2-5.0); Alkaline Phosphatase 94 U/L (45-117); Anion Gap 6 (5-15); BUN 15 mg/dL (7-18); Calcium,Total 9.3 mg/dL (8.5-10.1); Chloride 107 mmol/L (98-107); Creatinine, Serum 1.15 mg/dL (0.70-1.30); EST Glomerular Filtration Rate 68 mL/min (>60); Est Glom Filt Rate - Afr Amer 82 mL/min (>60); Globulin 3.6 g/dL (2.2-4.2); Glucose 143 mg/dL (74-106); Potassium 3.7 mmol/L (3.5-5.1); Protein, Total 7.5 g/dL (6.4-8.2); Sodium Level 135 mmol/L (136-145); Thyroid Stim Hormone (TSH) 1.82 uIU/mL (0.358-3.74)
== END | disposition home or self-care (01) ==
LOC: BFHLAB 14:56
PROVIDERS: PCP Family Medicine; Visit Provider Family Medicine
DX: R53.83 Other fatigue (principal)
CPT/HCPCS: 36415; 80053; 82306; 82607; 84443; 85025

== ENCOUNTER → 2022-12-09 | Outpatient (CLI) | payer OTHER, SELFPAY ==
--- NOTE | 2022-12-09 15:20 | RAD_ITS ---
INDICATION: Left ankle pain EXAMINATION/TECHNIQUE: X-RAY - LEFT XR Ankle Min 3 Views COMPARISON: None. FINDINGS: No acute fracture or malalignment. No blastic or lytic lesions. Mild degenerative changes of the hindfoot and midfoot. The soft tissues are unremarkable. RAD/Ankle min 3 Views IMPRESSION: No acute radiographic abnormalities. Mild degenerative changes of the hindfoot and midfoot. Electronically Signed: Theo Nicholson MD at 16:47 EDT ,
== END | disposition home or self-care (01) ==
LOC: MTRAD 15:18
PROVIDERS: PCP Family Medicine; Referring Provider Physician Assistant Surgical; Visit Provider Physician Assistant Surgical
DX: S96.912A Strain of unspecified muscle and tendon at ankle and foot level, left foot, initial encounter (principal)
CPT/HCPCS: 73610

== ENCOUNTER 2023-01-23 14:30 | Outpatient (RCR) | payer OTHER, SELFPAY ==
--- NOTE | 2022-12-29 17:45 | HP.PTEVAL ---
Patient's Visit Information Visit Information Visit Information: CHI HINTON is a 62 year old M referred to Physical Therapy by ALPHONSO OJEDA with a diagnosis of Meniere's disease. Date of Evaluation: 12/29/22 Physical Therapist: Pedrito Falcon, DPT, OCS, CSCS Visit Plan Frequency: 2x /Week Duration: 4-6 Weeks Plan: 2x/week for 4-6 weeks for vestibular ex progression(pt doing 30-60 second seated VOR currently 6x/day) Please monitor this in therapy and work on balance as it pertains to fw weight shift funcitonally and vestibular balance ex(foam, ec, weight shifts etc) and get to HEp once safe. Work on general ex program for posture and LE also to I. Subjective Subjective: Life has become challenge. Saw ENT neuro for Mieniere's Disease. been managing it with meds of antihistamine. Has had inner ear injection also. No balance on l side due to acoustic neuroma 20 yr ago removal. meineire's is on r side. Takes diazepam when vertigo gets bad or balance gets worse typically about 3x/month. Can be a bad day for a day or two or shorter. Bad days: pressure and tinnitus and off balance. Occaasional spinning. Looking through venetian blinds can be rough. Feels unsteady in eyes. Good days: needs cane still but feels good otherwise. get up in am is taking a long time due to stability. Has walker and WC at home, has back and hip degeneration also limiting his mobility. Uses wh walker out with major walking. WC at [employer] things like that with a lot of people and time involved. Sleeps well as far as this goies, back and hip may keep him up. Walks with cane on [employer]. Hobbies: car shows still does but harder to get around. No more woodworking. Pain back and hip: Pain Intensity (Out of 10): Unrated Objective Objective: Walks with cane mod I but wobbly upon first standing mostly posterior avoiding forefoot WB. sit to stand is I but unsteady as mentioned. Steps avoid FW weight shift adn reqires rail, avoids use R LE due to hip pain. foam stance is hard and weight goes BW, no time in ec foam stance. tends posterior in romberg ec. LE strength 4/5 HS and gastroc mod tight sensation WNL to gross light touch. reflexes 2/3 patella and achilles - B hallpike clovis Oculomotor is tough for patient all making him dizzy: no nystagmus pursuit is hard to the right with anticipation, Saccades is slow, both symptomatic. VOR 30 seconds is 45 seconds of dizzyness, recovering fully. - skew eye deviation - ocular tilt no nystagmus with gaze or head shake - head thrust. Balance/Special Test Scores Functional Gait Assessment Score: 20 % Disability: 33.3400 CATSIB Score (Max score 120 seconds): 60 Dizziness Score: 70 Goals Goal 1:: FGA 24/ Goal Time Frame: 4-6 Weeks Goal 2:: stand from chair without drifting BW 5/5x Goal Time Frame: 4-6 Weeks Goal 3:: DHI 22 or less Goal Time Frame: 4-6 Weeks Goal 4:: I appropriate HEP to limti future problems(general ex, vestib and balance/weight shift.) Goal Time Frame: 4-6 Weeks Goal 5:: pt feel 50% better in mobility overall Goal Time Frame: 4-6 Weeks Rehabilitation Potential Physical Therapy Diagnosis: poor balance from menieres limiting function. Rehabilitation Potential: Fair Anticipated Interventions Patient/Client Instruction: Educate patient on: Condition and Risk Factors For the Purpose of:: To decrease pain, To improve muscle performance and motor function, To increase tolerance to activity/condition/position, To improve ability of physical actions for home/community/work/leisure, To improve gait and locomotor functions and To improve safety Therapeutic Exercise to Include: Strength training, Balance training, Postural training and Gait and locomotor training Comment: vestibular For the Purpose of:: To improve nutrient delivery to tissue, To improve muscle performance and motor function, To increase tolerance to activity/condition/position, To improve ability of physical actions for home/community/work/leisure, To improve gait and locomotor functions and To improve safety Text: Thank you for the opportunity to evaluate your patient. For Medicare and Medicare HMO plans, please review the plan of care and approve it. It will need to be FAXED BACK to us at [phone] for Medicare purposes. For Medicare only, by signing this I certify the plan of care. Please let me know if there are questions or concerns regarding this plan of care. Physician Signature: Date:
--- NOTE | 2023-03-31 14:19 | HP.PT.NRP ---
Patient Information Patient Information: CHI HINTON was seen in my office for initial evaluation on 12/29/22. The following Plan of Care was established for this patient: POC Established Initial Frequency: 2x /Week Initial Duration: 4-6 Weeks Anticipated Interventions Patient/Client Instruction: Educate patient on: Condition and Risk Factors For the Purpose of:: To decrease pain, To improve muscle performance and motor function, To increase tolerance to activity/condition/position, To improve ability of physical actions for home/community/work/leisure, To improve gait and locomotor functions and To improve safety Therapeutic Exercise to Include: Strength training, Balance training, Postural training and Gait and locomotor training For the Purpose of:: To improve nutrient delivery to tissue, To improve muscle performance and motor function, To increase tolerance to activity/condition/position, To improve ability of physical actions for home/community/work/leisure, To improve gait and locomotor functions and To improve safety Last Seen Last Seen: This patient was last seen in our office 01/23/23. Pertinent comments regarding their Physical therapy will appear below: Pt seen 8 visits of POC but did not attend final recheck with therapist. At this point, it has been over 2 months and I will discontinue due to nonattendance. At this point I will be discontinuing this patient from physical therapy. I would be happy to see this patient again in the future if found appropriate by the physician. Thank you! Pedrito Falcon, DPT, OCS, CSCS Balance/Gait/Functional tests Balance/Special Test Scores Functional Gait Assessment Score: 20 % Disability: 33.3400 CATSIB Score (Max score 120 seconds): 60 Dizziness Score: 70
== END 2023-01-23 19:00 | disposition home or self-care (01) ==
LOC: PT 14:30
PROVIDERS: PCP Family Medicine
DX: H81.01 Meniere's disease, right ear (principal)
CPT/HCPCS: 97110; 97112; 97162

== ENCOUNTER → 2023-07-28 | Outpatient (CLI) | payer OTHER, MEDICARE, SELFPAY ==
[2023-07-28 07:08] LABS: Absolute Lymphocyte Count 1.38 X10^3/uL (0.83-4.51); Absolute Neutrophil Count 3.9 X10^3/uL (2.0-7.7); Basophil# 0.05 X10^3/uL; Basophil% 0.8 % (0-1); Eosinophil# 0.13 X10^3/uL; Eosinophils% 2.2 % (0-5); Hematocrit 47.4 % (40-54); Hemoglobin 15.5 g/dL (13.0-16.5); Lymphocyte # 1.38 X10^3/ul (0.83-4.51); Mean Corp Hgb Conc 32.7 g/dL (32-36); Mean Corpuscular Hgb 28.7 pg (27.0-32.0); Mean Corpuscular Volume 87.6 fL (80-94); Mean Platelet Vol. 9.3 fl (6.2-12.0); Monocyte# 0.54 X10^3/uL; NRBC Flagged by Analyzer 0 % (0-5); Neutrophil # 3.87 X10^3/uL (2.7-7.7); Neutrophil % 64.5 % (47-70); Platelet Count 221 K/mm3 (150-450); RBC Distribution Width CV 14.3 % (11.6-14.6); RBC Distribution Width SD 45.7 fl (35.1-43.9); Red Blood Count 5.41 M/mm3 (4.6-6.2)
[2023-07-28 07:47] LABS: Vitamin B12 424 pg/mL (211-911); Vitamin D,25 Hydroxy 31.8 ng/mL
[2023-07-28 08:30] LABS: ALB/GLOB Ratio 1.1 RATIO (0.9-2.4); AST(SGOT) 24 U/L (15-37); Alanine Aminotransfer ALT/SGPT 23 U/L (16-61); Albumin, Serum 3.9 g/dL (3.2-5.0); Alkaline Phosphatase 88 U/L (45-117); Anion Gap 11 (5-15); BUN 17 mg/dL (7-18); Calcium,Total 9.3 mg/dL (8.5-10.1); Chloride 105 mmol/L (98-107); Cholesterol 191 mg/dL (200); Creatinine, Serum 1.21 mg/dL (0.70-1.30); EST Glomerular Filtration Rate 64 mL/min (>60); Est Glom Filt Rate - Afr Amer 77 mL/min (>60); Globulin 3.6 g/dL (2.2-4.2); Glucose 106 mg/dL (74-106); High Density Lipoprotein 38 mg/dL; PSA,Total - Annual Screen 0.92 ng/mL (0.00-4.00); Potassium 3.9 mmol/L (3.5-5.1); Protein, Total 7.5 g/dL (6.4-8.2); Sodium Level 138 mmol/L (136-145); Triglycerides 108 mg/dL; Very Low Density Lipoprotein 22 mg/dL (5-40)
[2023-07-28 08:34] LABS: Hemoglobin A1c 5.2 % (3.8-5.6)
== END | disposition home or self-care (01) ==
PROVIDERS: PCP Family Medicine; Referring Provider Nurse Practitioner Family; Visit Provider Nurse Practitioner Family
DX: Z12.5 Encounter for screening for malignant neoplasm of prostate (principal); R73.01 Impaired fasting glucose; I10 Essential (primary) hypertension; E78.5 Hyperlipidemia, unspecified; E55.9 Vitamin D deficiency, unspecified; E53.8 Deficiency of other specified B group vitamins
CPT/HCPCS: 36415; 80053; 80061; 82306; 82607; 83036; 84153; 85025; G0103

== ENCOUNTER → 2023-08-23 | Outpatient (CLI) | payer OTHER, MEDICARE, SELFPAY ==
--- NOTE | 2023-08-23 12:00 | US_ITS ---
STUDY: THYROID ULTRASOUND REASON FOR EXAM: Male, 63 years old. Nontoxic single thyroid nodule TECHNIQUE: Ultrasound evaluation of the thyroid was performed with real-time and static hyatt-scale imaging. COMPARISON: CT 07/12/2018 FINDINGS: RIGHT LOBE: The right lobe of the thyroid gland measures 5.0 x 1.8 x 1.7 cm. There is a homogeneous echotexture. There are no demonstrated solid, cystic or complex lesions. LEFT LOBE: The left lobe of the thyroid gland measures 5.2 x 1.8 x 1.4 cm. There is a homogeneous echotexture. 3 x 2 x 2 mm cystic anechoic wider than tall smoothly marginated nodule with no echogenic foci (TR 1) of the inferior left lobe consistent with colloid cysts. ISTHMUS: The isthmus measures 3 mm thick. . The regional lymph nodes are normal. US/Thyroid IMPRESSION: Essentially normal thyroid ultrasound with a tiny colloid cyst in the inferior left lobe. Electronically Signed: Coleman Iniguez MD at 14:08 EDT ,
== END | disposition home or self-care (01) ==
LOC: US 12:00
PROVIDERS: PCP Family Medicine; Referring Provider Family Medicine; Visit Provider Family Medicine
DX: E04.1 Nontoxic single thyroid nodule (principal)
CPT/HCPCS: 76536

== ENCOUNTER → 2023-11-24 | Outpatient (CLI) | payer OTHER, MEDICARE, SELFPAY ==
[2023-11-24 15:22] LABS: Absolute Lymphocyte Count 1.45 X10^3/uL (0.83-4.51); Absolute Neutrophil Count 3.1 X10^3/uL (2.0-7.7); Basophil# 0.05 X10^3/uL; Basophil% 0.9 % (0-1); Eosinophil# 0.12 X10^3/uL; Eosinophils% 2.2 % (0-5); Hematocrit 47.4 % (40-54); Hemoglobin 15.5 g/dL (13.0-16.5); Lymphocyte # 1.45 X10^3/ul (0.83-4.51); Lymphocyte % 26.1 % (19-41); Mean Corp Hgb Conc 32.7 g/dL (32-36); Mean Corpuscular Hgb 28.3 pg (27.0-32.0); Mean Corpuscular Volume 86.5 fL (80-94); Mean Platelet Vol. 9.6 fl (6.2-12.0); Monocyte# 0.81 X10^3/uL; Monocyte% 14.6 % (0-10); NRBC Flagged by Analyzer 0 % (0-5); Neutrophil # 3.11 X10^3/uL (2.7-7.7); Neutrophil % 55.8 % (47-70); Platelet Count 265 K/mm3 (150-450); RBC Distribution Width CV 14.9 % (11.6-14.6); RBC Distribution Width SD 47.4 fl (35.1-43.9); Red Blood Count 5.48 M/mm3 (4.6-6.2); White Blood Count 5.6 K/mm3 (4.4-11.0)
[2023-11-24 15:59] LABS: AST(SGOT) 14 U/L (15-37); Alanine Aminotransfer ALT/SGPT 24 U/L (16-61); Albumin, Serum 3.9 g/dL (3.2-5.0); Alkaline Phosphatase 85 U/L (45-117); Anion Gap 7 (5-15); BUN 14 mg/dL (7-18); BUN/Creat Ratio 13.3 RATIO (10-20); Calcium,Total 9.7 mg/dL (8.5-10.1); Chloride 109 mmol/L (98-107); Creatinine, Serum 1.05 mg/dL (0.70-1.30); EST Glomerular Filtration Rate 75 mL/min (>60); Est Glom Filt Rate - Afr Amer 91 mL/min (>60); Globulin 3.8 g/dL (2.2-4.2); Glucose 89 mg/dL (74-106); LDH 172 U/L (87-241); Protein, Total 7.7 g/dL (6.4-8.2); Sodium Level 137 mmol/L (136-145); T4 Free Direct 1.08 ng/dL (0.76-1.46)
== END | disposition home or self-care (01) ==
LOC: BFHLAB 13:48
PROVIDERS: PCP Family Medicine; Visit Provider Family Medicine
DX: R23.2 Flushing (principal); R53.83 Other fatigue
CPT/HCPCS: 36415; 80053; 83615; 84403; 84439; 84443; 85025

== ENCOUNTER → 2024-02-22 | Outpatient (CLI) | payer OTHER, MEDICARE, SELFPAY ==
[2024-02-22 17:35] LABS: Absolute Lymphocyte Count 1.37 X10^3/uL (0.83-4.51); Absolute Neutrophil Count 6.9 X10^3/uL (2.0-7.7); Basophil# 0.06 X10^3/uL; Basophil% 0.7 % (0-1); Eosinophil# 0.15 X10^3/uL; Eosinophils% 1.6 % (0-5); Hematocrit 50.3 % (40-54); Hemoglobin 17.1 g/dL (13.0-16.5); Lymphocyte # 1.37 X10^3/ul (0.83-4.51); Lymphocyte % 14.9 % (19-41); Mean Corpuscular Hgb 30.5 pg (27.0-32.0); Mean Corpuscular Volume 89.8 fL (80-94); Mean Platelet Vol. 9.8 fl (6.2-12.0); Monocyte% 7.6 % (0-10); NRBC Flagged by Analyzer 0 % (0-5); Neutrophil # 6.87 X10^3/uL (2.7-7.7); Neutrophil % 74.7 % (47-70); Platelet Count 282 K/mm3 (150-450); RBC Distribution Width CV 14.5 % (11.6-14.6); RBC Distribution Width SD 44.1 fl (35.1-43.9); White Blood Count 9.2 K/mm3 (4.4-11.0)
[2024-02-22 18:02] LABS: AST(SGOT) 25 U/L (15-37); Alanine Aminotransfer ALT/SGPT 55 U/L (16-61); Albumin, Serum 3.7 g/dL (3.2-5.0); Alkaline Phosphatase 92 U/L (45-117); Anion Gap 6 (5-15); BUN 15 mg/dL (7-18); BUN/Creat Ratio 12.3 RATIO (10-20); CRP < 2.90 mg/L (0.0-3.0); Calcium,Total 9.5 mg/dL (8.5-10.1); Chloride 101 mmol/L (98-107); Creatinine, Serum 1.22 mg/dL (0.70-1.30); EST Glomerular Filtration Rate 63 mL/min (>60); Est Glom Filt Rate - Afr Amer 76 mL/min (>60); Globulin 3.8 g/dL (2.2-4.2); Glucose 104 mg/dL (74-106); Potassium 3.8 mmol/L (3.5-5.1); Protein, Total 7.5 g/dL (6.4-8.2); Sodium Level 135 mmol/L (136-145)
== END | disposition home or self-care (01) ==
PROVIDERS: PCP Family Medicine; Referring Provider Family Medicine; Visit Provider Family Medicine
DX: H70.90 Unspecified mastoiditis, unspecified ear (principal); J02.9 Acute pharyngitis, unspecified
CPT/HCPCS: 36415; 80053; 85025; 86140

== ENCOUNTER → 2024-03-08 | Outpatient (CLI) | payer OTHER, MEDICARE, SELFPAY ==
--- NOTE | 2024-03-08 07:45 | CT_ITS ---
STUDY: CT ORBITS WITHOUT CONTRAST REASON FOR EXAM: Male, 63 years old. RIGHT MASTOID PAIN, RIGHT EAR PAIN RADIATION DOSAGE (If Supplied By Facility): CTDIvol = ( 67.58 ) mGy, DLP = ( 844.34 ) mGycm TECHNIQUE: The patient was scanned in a multi detector CT scanner. Transaxial imaging was performed without the administration of intravenous contrast material. Sagittal and coronal images were reconstructed. Individualized dose optimization techniques were used for this CT. COMPARISON: None. FINDINGS: Normal globes. Normal intraconal spaces. Normal optic nerve sheath complex. Normal bilateral extraocular muscles. Normal lacrimal glands. Normal bilateral medial and inferior orbital rico. Normal bilateral maxillary bones. Normal bilateral frontozygomatic arches. Normal bilateral zygomatic temporal arches. Normal frontal sinus. Normal ethmoidal sinuses. Normal maxillary sinuses. Normal sphenoid sinuses. Normal soft tissue structures. CT/Orb Sella Post Fossa Ear w/o IMPRESSION: Normal CT examination of the bilateral orbits. Electronically Signed: Crow Truong MD at 11:11 EST ,
== END | disposition home or self-care (01) ==
PROVIDERS: PCP Family Medicine; Referring Provider Family Medicine; Visit Provider Family Medicine
DX: H92.01 Otalgia, right ear (principal); H70.91 Unspecified mastoiditis, right ear
CPT/HCPCS: 70480

== ENCOUNTER → 2024-03-15 | Outpatient (CLI) | payer OTHER, MEDICARE, SELFPAY | END | disposition home or self-care (01) | LOC: BFHLAB 15:02 | PROVIDERS: PCP Family Medicine; Visit Provider Family Medicine | DX: R05.9 Cough, unspecified (principal) | CPT/HCPCS: 87015; 87070; 87116; 87205; 87206 ==

== ENCOUNTER 2024-05-16 10:00 | Outpatient (RCR) | payer OTHER, MEDICARE, SELFPAY ==
--- NOTE | 2024-05-07 11:02 | HP.PTEVAL ---
Patient's Visit Information Visit Information Visit Information: CHI HINTON is a 64 year old M referred to Physical Therapy by WOODY SALDAÑA with a diagnosis of R sided occipital neuralgia. Date of Evaluation: 04/23/24 Physical Therapist: Sam Fontanez DPT Visit Plan Frequency: 2x /Week Duration: 6 Weeks Plan: 1) manual distraction, occipital release, PA mobs 2) R UT manual therapy and stretching 3) deep neck flexor strengthening and retraction exercises. May use US to R occipital region to reduce muscle tension. Subjective Subjective: Pt. is here today for his initial evaluation with diagnosis R sided cervical neuralgia with upper trap tightness. Pt. reports having increased R occipital and temporal pain for a few weeks to months now. He reports being pretty sick and this stemmed out of it. He reports that changes in position do not seem to change in symptoms. He has done some chiro care without much relief. Pt. reports no UE symptoms, no N/T and no myotomal weakness. He gets increased HAs and pain. He is sleeping okay. Pt. would like to have decreased HS and R occipital/temporal pain. Pain R occipital region: Pain Intensity (Out of 10): 4 Pain Intensity Range: 2 and 8 R temporal region: Pain Intensity (Out of 10): 4 Pain Intensity Range: 2 and 8 Objective Objective: POSTURE: Pt. has decent posture in stance. Pt. has slight FH posture. Pt. has slight thoracic kyphosis. PALPATION: Pt. has increased pain at bilateral occipital region, R worse than L. Pt. has increased pain with palpation of B UT as well, again R worse than L. NEURO: normal throughout BUEs. ROM: CERVICAL SPINE: flexion min loss tightness noted, ext mod loss increase NW, rotation R mod loss mild increase NW, rotation L min loss tightness noted. SB mod loss bilat. Pt. has B shoulder ROM within normal limits. MMT: Pt. has full strength of BUEs without myotomal weakness noted. Pt. did report relief with distraction. He does have marked tightness in his occipitals. Special Tests C/S Radiculapathy - Left Upper limb tension test: Negative C/S Radiculapathy - Right Upper limb tension test: Negative C/S Radiculapathy - Left Spurlings: Negative C/S Radiculapathy - Right Spurlings: Negative C/S Radiculapathy - Left Cervical distraction: Negative C/S Radiculapathy - Right Cervical distraction: Negative C/S Radiculapathy - Left Relief test: Negative C/S Radiculapathy - Right Relief test: Negative C/S Radiculapathy - Valsalva: Negative Balance/Special Test Scores Oswestry Neck Score: 3 Goals Goal 1:: LTG: Pt. to be I with HEP. Goal Time Frame: 4-6 Weeks Goal 2:: LTG: Pt. have full cervical ROM without increase in symptoms. Goal Time Frame: 4-6 Weeks Goal 3:: STG: Pt. to report decreased cervical and temporal pain to less than 2/10. Goal Time Frame: 2-4 Weeks Goal 4:: LTG: Pt. to reports no occipital or temporal pain with all daily and recreational activities. Goal Time Frame: 4-6 Weeks Rehabilitation Potential Physical Therapy Diagnosis: Pt. has signs and symptoms consistent with R sided occipital neuralgia. Pt. has marked hypomobility and cervical weakness. He would benefit from PT to address the above limitations progressing back to all recreational activities without limitations. Rehabilitation Potential: Excellent Anticipated Interventions Patient/Client Instruction: Educate patient on: Condition, Plan of Care, Risk Factors and Benefits of Fitness Program For the Purpose of:: To facilitate caregiver knowledge, To improve self management, To prevent re-injury, To improve ability to perform tasks related to life management and To improve tolerance to ADL's Therapeutic Exercise to Include: Strength training, Power training, Body mechanics, Postural training, Flexibilty training, Passive ROM, Active ROM and Kai Exercises For the Purpose of:: To decrease pain, To increase ROM, To improve nutrient delivery to tissue, To increase oxygenation perfusion, To improve muscle performance and motor function, To improve ability to perform ADL's and To increase tolerance to activity/condition/position Manual Therapy Techniques to Include: Trigger point massage, Mobilization, Passive ROM and Soft tissue mobilization For the Purpose of:: To decrease pain, To decrease swelling/inflammation, To increase ROM, To improve nutrient delivery to tissue, To increase oxygenation perfusion and To improve muscle performance and motor function Ultrasound (thermal/non thermal): Yes For the Purpose of:: To decrease pain, To decrease swelling/inflammation, To increase ROM and To improve nutrient delivery to tissue Text: Thank you for the opportunity to evaluate your patient. For Medicare and Medicare O plans, please review the plan of care and approve it. It will need to be FAXED BACK to us at [phone] for Medicare purposes. For Medicare only, by signing this I certify the plan of care. Please let me know if there are questions or concerns regarding this plan of care. Physician Signature: Date:
--- NOTE | 2024-05-16 12:09 | HP.PTDCSUM ---
Discharge Summary D/C summary: It has been my pleasure to treat CHI HINTON referred by WOODY SALDAÑA, with the diagnosis of R sided occipital neuralgia for a total of 7 visit(s). Discharge Date: 05/16/24 Please see the following information for a summary of their discharge status. Subjective Subjective: Pt. reports overall doing much better. Pt. reports being 100% better overall. No issues noted. Pt. pleased. Pain R occipital region: Pain Intensity (Out of 10): 0 R temporal region: Pain Intensity (Out of 10): 0 Overall Improvement % Improvement: 100 Objective Objective/Function: ROM: CERVICAL SPINE: flexion min loss NE, ext min loss NE, rotation min loss NE, SB nil loss NE. Pt. has good cervical retraction and good chin tuck. Pt. has no pain with palpation throughout cervical spine. He is no longer having symptoms of his sub occipital space. He is I with his exercises. Pt. will continue to complete these. Pt. to be Dc. Goals Goal 1:: LTG: Pt. to be I with HEP. Goal 2:: LTG: Pt. have full cervical ROM without increase in symptoms. Goal Progress: Goal Met Goal 3:: STG: Pt. to report decreased cervical and temporal pain to less than 2/10. Goal Progress: Goal Met Goal 4:: LTG: Pt. to reports no occipital or temporal pain with all daily and recreational activities. Goal Progress: Goal Met Plan Plan: Pt. to be DC from PT at this point in time. D/C Information Discharge Comments: Pt. is overall doing much better. He is no longer having any pain and will DC from PT at this point in time. d/c sentence: If there are questions or concerns regarding this patient's physical therapy, please feel free to call me at [phone]. Thank you for the referral of this patient. Sincerely, Sam Au Sipos, DPT Balance/Gait/Functional tests Balance/Special Test Scores Oswestry Neck Score: 0 Improvement % Improvement: 100
== END 2024-05-16 19:00 | disposition home or self-care (01) ==
LOC: PT 10:00
PROVIDERS: PCP Family Medicine
DX: M54.81 Occipital neuralgia (principal)
CPT/HCPCS: 97035; 97110; 97140; 97161; 97530

== ENCOUNTER → 2024-09-03 | Outpatient (CLI) | payer MEDICARE, OTHER, SELFPAY ==
[2024-09-03 12:04] LABS: Hematocrit 43.9 % (40-54); Hemoglobin 14.4 g/dL (13.0-16.5); Immature Granulocytes Count 0.030 X10^3/uL (0.0-0.0); Mean Corp Hgb Conc 32.8 g/dL (32-36); Mean Corpuscular Volume 87.1 fL (80-94); Mean Platelet Vol. 10.5 fl (6.2-12.0); NRBC Flagged by Analyzer 0 % (0-5); Platelet Count 220 K/mm3 (150-450); RBC Distribution Width CV 14.0 % (11.6-14.6); RBC Distribution Width SD 44.7 fl (35.1-43.9); Red Blood Count 5.04 M/mm3 (4.6-6.2); White Blood Count 7.1 K/mm3 (4.4-11.0)
[2024-09-03 12:33] LABS: AST(SGOT) 19 U/L (<=37); Alanine Aminotransfer ALT/SGPT 14 U/L (<=46); Albumin, Serum 4.1 g/dL (3.4-4.8); Alkaline Phosphatase 79 U/L (40-129); Anion Gap 12 (5-15); BUN 15 mg/dL (4-19); BUN/Creat Ratio 13.9 RATIO (10-20); Calcium,Total 9.6 mg/dL (7.6-11.0); Carbon Dioxide 22.4 mmol/L (21.0-32.0); Chloride 104 mmol/L (98-108); Cholesterol 157 mg/dL (<=200); Globulin 2.7 g/dL (2.2-4.2); Glucose 99 mg/dL (70-99); Low Density Lipoprotein Calc. 92 mg/dL; PSA,Total - Annual Screen 0.40 ng/mL (0.02-4.00); Potassium 4.0 mmol/L (3.3-5.1); Triglycerides 160 mg/dL; Very Low Density Lipoprotein 32 mg/dL (5-40); cholesterol:hdl ratio screen 4.82
== END | disposition home or self-care (01) ==
LOC: BFHLAB 09:53
PROVIDERS: PCP Family Medicine; Visit Provider Family Medicine
DX: I10 Essential (primary) hypertension (principal); R73.01 Impaired fasting glucose; Z12.5 Encounter for screening for malignant neoplasm of prostate
CPT/HCPCS: 36415; 80053; 80061; 83036; 84153; 85025; G0103

== ENCOUNTER → 2025-01-02 | Outpatient (CLI) | payer MEDICARE, SELFPAY | END | disposition home or self-care (01) | LOC: MTLAB 15:41 | PROVIDERS: PCP Family Medicine; Referring Provider Family Medicine; Visit Provider Family Medicine | DX: R68.89 Other general symptoms and signs (principal) | CPT/HCPCS: 36415; 84439; 84443 ==

== ENCOUNTER → 2025-01-27 | Outpatient (CLI) | payer MEDICARE, SELFPAY ==
--- NOTE | 2025-01-27 17:11 | CT_ITS ---
PROCEDURE: SOFT TISSUE NECK WITH CONTRAST 01/27/2025 REASON FOR EXAM: THROAT PAIN,DYSPHONIA AND LEFT ADENOPATHY TECHNIQUE: Procedure Code: CTNEW Modality: CT Procedure: SOFT TISSUE NECK WITH CONTRAST CONTRAST: Isovue 370 VOLUME: 67 mL One or more dose reduction techniques were used (e.g., Automated exposure control, adjustment of the mA and/or kV according to patient size, use of iterative reconstruction technique). RADIATION DOSE SUMMARY: CTDlvol: 17.6 mGy DLP: 609 mGycm COMPARISON: None FINDINGS: Airway: Midline and patent. Vocal cords are midline. Salivary glands: Unremarkable. Lymph nodes: No lymph node enlargement Thyroid: Normal Vasculature: Eccentric plaque is seen at the carotid bulb and near the origin of the external carotid. This is less than 25% narrowing. Orbits: Bilateral lens implants. Otherwise unremarkable Paranasal sinuses and mastoids: Clear Lung apices: Clear Upper mediastinum: Unremarkable Bones: Multilevel disc space narrowing, marginal endplate spurring and uncinate spurring. Facet hypertrophy. CT/Soft Tissue Neck WITH Contrast IMPRESSION: No lymphadenopathy or mass seen. Reading Location: [id number]
[2025-01-27 17:37] LABS: CREATININE FINGERSTICK 1.1 mg/dL (0.70-1.30); EGFR FINGERSTICK > 60.0000 mL/min (>60)
== END | disposition home or self-care (01) ==
LOC: CT 17:07
PROVIDERS: PCP Family Medicine; Referring Provider Family Medicine; Visit Provider Family Medicine
DX: R07.0 Pain in throat (principal); R59.0 Localized enlarged lymph nodes; R49.0 Dysphonia; E04.1 Nontoxic single thyroid nodule
CPT/HCPCS: 70491; Q9967